=== PATIENT | female | born 1935 | race Caucasian/White ===

== ENCOUNTER 2016-12-31 12:05 | Emergency (ER) | payer OTHER, MEDICARE ==
[~2016-12-31 12:05] MED LIST: ACETAMINOPHEN-1 EAC3 PO; COLACE100 M1 PO
[2016-12-31 12:38] LABS: ABSOLUTE BASOPHIL COUNT 0 /CUMM (0.0-0.2); ABSOLUTE EOSINOPHIL COUNT 0.1 /CUMM (0.0-0.7); ABSOLUTE GRANULOCYTE CT 6.9 /CUMM (1.4-6.5); ABSOLUTE LYMPH COUNT 1.7 /CUMM (1.2-3.4); ABSOLUTE MONOCYTE COUNT 0.6 /CUMM (0.10-0.60); BASOPHIL % 0.4 % (0.0-2.0); EOSINOPHIL % 1.6 % (0-5); GRANULOCYTE % 73.4 % (42.2-75.2); HEMATOCRIT 37.7 % (37-47); MEAN CORPUSCULAR HGB 30.8 PG (27.0-31.0); MEAN CORPUSCULAR VOLUME 90.4 FL (81.0-99.0); MEAN PLATELET VOLUME 8.3 FL (7.4-10.4); PLATELET COUNT 308 /CUMM (130-400); RBC DISTRIBUTION WIDTH 14.3 % (11.5-14.5); RED BLOOD CELL CT 4.17 /CUMM (4.20-5.40); WHITE BLOOD CELL COUNT 9.4 /CUMM (4.8-10.8)
--- NOTE | 2016-12-31 14:00 | ED GI/GU/ABDOMINAL COMPLAINT ---
History of Present Illness General Chief Complaint: Abdominal Pain/Flank Pain Stated Complaint: RT SIDED ABD PAIN SENT BY DR SORIANO Source: patient, PCP Exam Limitations: no limitations Vital Signs & Intake/Output Vital Signs & Intake/Output Vital Signs Date Time Temp Pulse Resp B/P B/P Pulse O2 O2 Flow FiO2 Mean Ox Delivery Rate 12/31 1450 98.2 68 20 138/92 95 Room Air 12/31 1216 98.3 84 20 118/66 97 Room Air Allergies Coded Allergies: shrimp (UNKNOWN 12/31/16) strawberry (UNKNOWN 12/31/16) Reconcile Medications Amlodipine Besylate 5 MG TABLET 1 TAB PO DAILY HEART (Reported) Antiox#10/Om3/Dha/Epa/Lut/Zeax (I-Caps With Lutein-K[place] 3 Sfg) 280 MG (78 MG- 148 MG)-10 MG-2 MG CAPSULE 1 CAP PO DAILY EYE (Reported) Aspirin (Aspirin*) 81 MG TAB.CHEW 1 TAB PO DAILY HEART HEALTH (Reported) Escitalopram Oxalate (Lexapro) 5 MG TABLET 1 TAB PO DAILY MENTAL HEALTH ( Reported) Levothyroxine Sodium (Levoxyl) 50 MCG TABLET 1 TAB PO DAILY AC THYROID ( Reported) Multivitamin (Daily Multiple Vitamin) 1 EACH TABLET 1 TAB PO DAILY SUPPLEMENT (Reported) Olopatadine HCl (Patanol) 0.1 % DROPS 1 GTT OPH BID EYE (Reported) Quinapril HCl (Accupril) 40 MG TABLET 1 TAB PO DAILY HEART (Reported) Simvastatin (Zocor*) 20 MG TABLET 1 TAB PO QPM CHOLESTEROL (Reported) Triage Note: PER PT HAD RT SIDED ABD PAIN X [address] SORIANO FOR TESTS BECAUSE IT TAKES TOO LONG GOING OUT PT. Triage Nurses Notes Reviewed? yes ? n Is pt currently ? No HPI: Patient presents for evaluation of right-sided abdominal pain that began about 1 week ago. Patient is describing a mild to moderate intermittent dull aching right lower quadrant abdominal pain. She states she gets the pains every few hours and they last seconds at a time. She states it "feels like something is moving". She denies any associated fever, cold symptoms, chest pain, dyspnea, vomiting, diarrhea, dysuria or rashes. There is nothing that seems to make the pain feel better or worse. She was evaluated by her primary care physician and was asked to come to the emergency department for evaluation of a possible appendicitis versus ovarian cyst. Past History Travel History Traveled to [place] past 21 day No Medical History Any Pertinent Medical History? see below for history Neurological: NONE EENT: NONE Cardiovascular: HTN,CHOL Respiratory: NONE Gastrointestinal: GALLBLADDER REMOVED 2004 Hepatic: NONE Renal: NONE Musculoskeletal: NONE Psychiatric: NONE Endocrine: THYROID Surgical History Surgical History: PARATHYROIDECTOMY Psychosocial History What is your primary language Maldivian Tobacco Use: Quit <30 days ago Family History Hx Contributory? No Review of Systems Review of Systems Constitutional: Reports: no symptoms. EENTM: Reports: no symptoms. Respiratory: Reports: no symptoms. Cardiovascular: Reports: no symptoms. GI: Reports: see HPI. Genitourinary: Reports: no symptoms. Musculoskeletal: Reports: no symptoms. Skin: Reports: no symptoms. Neurological/Psychological: Reports: no symptoms. Hematologic/Endocrine: Reports: no symptoms. Immunologic/Allergic: Reports: no symptoms. All Other Systems: Reviewed and Negative Physical Exam Physical Exam Gastrointestinal: SEE BELOW Comments: Gen.: Well-nourished, well-developed, no acute respiratory distress. Head: Normocephalic, atraumatic. Eyes: Normal inspection bilaterally Ears: Normal inspection bilaterally Nose: Normal inspection Throat/mouth : Moist mucosa Neck: Supple, full range of motion, no goiter Heart: Regular rate and rhythm, no murmurs rubs or gallops Lungs: Clear to auscultation bilaterally with normal air entry Chest: Nontender Back: Normal range of motion Abdomen: Soft, nontender, nondistended, normal bowel sounds Extremities: Normal range of motion grossly, equal radial pulses, no cyanosis clubbing or edema Neurologic: Cranial nerves grossly intact, speech is clear Skin: warm and dry, no rashes Psychiatric: Calm, cooperative, no apparent delusions or hallucinations Core Measures ACS in differential dx? No Severe Sepsis Present: No Septic Shock Present: No Progress Differential Diagnosis: appendicitis, biliary colic, bowel obstruction, diverticulitis, hepatitis, ischemic bowel, ovarian cyst, pancreatitis, perforated viscous, SBO, UTI/pyelo Plan of Care: Orders Procedure Date/time Status URINALYSIS 12/31 1217 Complete LIPASE 12/31 1217 Complete COMPREHENSIVE METABOLIC PANEL 12/31 1217 Complete CBC WITHOUT DIFFERENTIAL 12/31 1216 Complete AMYLASE 12/31 1217 Complete Laboratory Tests 12/31/16 1317: Urinalysis LIGHT H, Urine Color YEL, Urine Clarity CLEAR, Urine pH 6.0, Ur Specific [place] 1.010, Urine Protein TRACE H, Urine Ketones NEG, Urine Nitrite NEG, Urine Bilirubin NEG, Urine Urobilinogen 0.2, Ur Leukocyte Esterase TRACE H , Ur Microscopic SEDIMENT EXAMINED, Urine RBC RARE, Urine WBC RARE, Ur Epithelial Cells MOD H, Urine Bacteria FEW H, Hyaline Casts 1-3 H, Urine Hemoglobin TRACE-INTACT, Urine Glucose NEG 12/31/16 1230: Anion Gap 12, Estimated GFR 43 L, BUN/Creatinine Ratio 19.2, Glucose 98, Calcium 9.2, Total Bilirubin 0.4, AST 20, ALT 27, Alkaline Phosphatase 80, Total Protein 6.9, Albumin 3.9, Globulin 3.0, Albumin/Globulin Ratio 1.3, Amylase 54, Lipase 139, CBC w Diff NO MAN DIFF REQ, RBC 4.17 L, MCV 90.4, MCH 30.8, RDW 14.3, MPV 8.3, Gran % 73.4, Lymphocytes % 18.1 L, Monocytes % 6.5, Eosinophils % 1.6, Basophils % 0.4, Absolute Granulocytes 6.9 H, Absolute Lymphocytes 1.7, Absolute Monocytes 0.6, Absolute Eosinophils 0.1, Absolute Basophils 0, PUBS MCHC 34.0 Diagnostic Imaging: Discussed w/RAD: CT Scan. Radiology Impression: PATIENT: LYNN COWAN PRESENT AGE: 81 PATIENT ACCOUNT NO: [id number] : 36 LOCATION: [facility] ORDERING PHYSICIAN: J CARLOS ROLAND MD SERVICE DATE: 12/31/16 EXAM TYPE: CAT - CT ABD & PELVIS W IV CONTRAST EXAMINATION: CT ABDOMEN AND PELVIS WITH CONTRAST CLINICAL INFORMATION: 81-year-old female with right lower quadrant abdominal pain. COMPARISON: None TECHNIQUE: Multidetector volumetric imaging was performed of the abdomen and pelvis before and after the IV administration of 95 mL of Optiray 320 intravenous contrast. Sagittal and coronal reformatted images were obtained on the technologist's workstation. DLP: 586 mGy-cm FINDINGS: LUNG BASES: There are a few scattered linear opacities of discoid atelectasis and/or scarring in the bases. No pericardial or pleural effusion. The mitral valve annulus is calcified. LIVER, GALLBLADDER, AND BILIARY TREE: The liver is diffusely hypodense relative to the spleen on these portal venous phase images: This suggests presence of steatosis. No focal hepatic lesion or intrahepatic bile duct dilatation. Gallbladder is surgically absent. PANCREAS: Unremarkable. SPLEEN: Unremarkable. ADRENAL GLANDS: Unremarkable. KIDNEYS AND URETERS: Kidneys are normal in size. There are bilateral peripelvic and cortical cysts. No solid renal masses are identified. No nephrolithiasis or hydroureteronephrosis. BLADDER: Unremarkable. GASTROINTESTINAL TRACT: Stomach is underdistended. The appendix is normal. There is diverticulosis of the descending and sigmoid colon without diverticulitis. No ascites or pneumoperitoneum. ABDOMINAL WALL: Small, fat-containing umbilical hernia measures 1.5 cm wide. LYMPH NODES: No pathologic sized lymph nodes within the abdomen or pelvis. VASCULAR: There is calcific atherosclerosis of the aorta and iliac arteries without aneurysm. The celiac trunk, SMA, EMILY and renal arteries appear to be widely patent. PELVIC VISCERA: The atrophied uterus is anteflexed. No evidence of uterine or adnexal mass. No evidence of free fluid or focal inflammatory process within the pelvis. OSSEOUS STRUCTURES: No acute findings within the degenerated thoracolumbar spine. At L3- L4, facet osteoarthritis is associated with minimal anterolisthesis of L3 on L4. 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 IMPRESSION: 1. No acute findings along the gastrointestinal tract. No evidence of appendicitis. There is colonic diverticulosis without diverticulitis. 2. Multiple bilateral renal cortical and peripelvic cysts without nephrolithiasis or hydronephrosis. 3. Diffuse hepatic steatosis. 4. No evidence of pelvic mass or abscess. 5. Small fat-containing umbilical hernia. DICTATED BY: OSCAR WREN MD DATE/TIME DICTATED:12/31/161445 DIRECTOR OF CREATIVE SERVICES:DRU DATE/TIME TRANSCRIBED:12/31/161445 CONFIDENTIAL, DO NOT COPY WITHOUT APPROPRIATE AUTHORIZATION. <Electronically signed in Other Vendor System> SIGNED BY: OSCAR WREN MD 12/31/16 1500 Initial ED EKG: none Comments: 12/31/2016 4:01:55 PM I have updated Lynn on her test results. Departure Departure Disposition: HOME OR SELF CARE Condition: Stable Clinical Impression Primary Impression: Nonspecific abdominal pain Referrals: KAYODE SORIANO MD (PCP/Family) Additional Instructions: [id number] pain medication as required. Follow-up with Dr. Soriano on Tuesday if not improving. Return if any concerns or sudden worsening. Please note that there might be incidental findings in your evaluation that are unrelated to the current emergency department visit. Please notify your primary care doctor about this emergency department visit in order to obtain and review all of the testing performed so that these incidental findings can be monitored as needed. If you had an x-ray performed, please understand that some fractures may not be seen on the initial set of x-rays. If your symptoms persist you might need a repeat set of x-rays to check for such a fracture. If you had a laceration evaluated, please understand that foreign bodies such as glass or wood may not be visible to the naked eye or on plain x-rays. If the wound becomes red, swollen, increasingly more painful or if there is any drainage from the wound, please have it reevaluated by a physician for the possibility of a retained foreign body. Thank you for choosing the [facility] Emergency Department for your care. It was a pleasure to serve you today. J Carlos Roland M.D. [facility] Departure Forms: Customer Survey General Discharge Information
[2016-12-31 14:50] VITALS: BP 138/92
--- NOTE | 2016-12-31 15:00 | CT SCAN REPORT ---
EXAMINATION: CT ABDOMEN AND PELVIS WITH CONTRAST CLINICAL INFORMATION: 81-year-old female with right lower quadrant abdominal pain. COMPARISON: None TECHNIQUE: Multidetector volumetric imaging was performed of the abdomen and pelvis before and after the IV administration of 95 mL of Optiray 320 intravenous contrast. Sagittal and coronal reformatted images were obtained on the technologist's workstation. DLP: 586 mGy-cm FINDINGS: LUNG BASES: There are a few scattered linear opacities of discoid atelectasis and/or scarring in the bases. No pericardial or pleural effusion. The mitral valve annulus is calcified. LIVER, GALLBLADDER, AND BILIARY TREE: The liver is diffusely hypodense relative to the spleen on these portal venous phase images: This suggests presence of steatosis. No focal hepatic lesion or intrahepatic bile duct dilatation. Gallbladder is surgically absent. PANCREAS: Unremarkable. SPLEEN: Unremarkable. ADRENAL GLANDS: Unremarkable. KIDNEYS AND URETERS: Kidneys are normal in size. There are bilateral peripelvic and cortical cysts. No solid renal masses are identified. No nephrolithiasis or hydroureteronephrosis. BLADDER: Unremarkable. GASTROINTESTINAL TRACT: Stomach is underdistended. The appendix is normal. There is diverticulosis of the descending and sigmoid colon without diverticulitis. No ascites or pneumoperitoneum. ABDOMINAL WALL: Small, fat-containing umbilical hernia measures 1.5 cm wide. LYMPH NODES: No pathologic sized lymph nodes within the abdomen or pelvis. VASCULAR: There is calcific atherosclerosis of the aorta and iliac arteries without aneurysm. The celiac trunk, SMA, EMILY and renal arteries appear to be widely patent. PELVIC VISCERA: The atrophied uterus is anteflexed. No evidence of uterine or adnexal mass. No evidence of free fluid or focal inflammatory process within the pelvis. OSSEOUS STRUCTURES: No acute findings within the degenerated thoracolumbar spine. At L3-L4, facet osteoarthritis is associated with minimal anterolisthesis of L3 on L4. 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 IMPRESSION: 1. No acute findings along the gastrointestinal tract. No evidence of appendicitis. There is colonic diverticulosis without diverticulitis. 2. Multiple bilateral renal cortical and peripelvic cysts without nephrolithiasis or hydronephrosis. 3. Diffuse hepatic steatosis. 4. No evidence of pelvic mass or abscess. 5. Small fat-containing umbilical hernia.
[2016-12-31] MEDS ORDERED: AMLODIPINE BESYL5 M1 PO (15:12)
[2016-12-31] MEDS ORDERED: LEVOXYL50 MCG PO (15:12)
[2016-12-31] MEDS ORDERED: ACCUPRIL40 M1 PO (15:12)
[2016-12-31] MEDS ORDERED: DAILY MULTIPLE1 EACH PO (15:13)
[2016-12-31] MEDS ORDERED: I-CAPS WITH LU1 EACH PO (15:13)
[2016-12-31] MEDS ORDERED: ZOCOR20 M1 PO (15:13)
[2016-12-31] MEDS ORDERED: LEXAPRO5 M1 PO (15:14)
[2016-12-31] MEDS ORDERED: ASPIRIN81 M4 PO (15:14)
[2016-12-31] MEDS ORDERED: PATANOL5 ML OPH (15:14)
== END 2016-12-31 16:10 ==
LOC: ERH 12:05
PROVIDERS: Emergency Medicine
DX: R10.31 Right lower quadrant pain (principal)
CPT/HCPCS: 74177; 81001

== ENCOUNTER 2018-05-04 10:47 | Inpatient (IN) | payer OTHER, MEDICARE ==
[~2018-05-04] VITALS: Ht 157.5 cm; Wt 84.5 kg
[~2018-05-04 10:47] MED LIST changes: +ACCUPRIL40 M1 PO; +AMLODIPINE BESYL5 M1 PO; +ASPIRIN81 M4 PO; +DAILY MULTIPLE1 EACH PO; +I-CAPS WITH LU1 EACH PO; +LEVOXYL50 MCG PO; +LEXAPRO5 M1 PO; +PATANOL5 ML OPH; +ZOCOR20 M1 PO
--- NOTE | 2018-05-04 11:17 | ED NEURO DEFICIT/STROKE ---
History of Present Illness General Chief Complaint: Neuro Symptoms/ Deficit Stated Complaint: BIBA STROKE ALERT Source: patient Exam Limitations: no limitations Vital Signs & Intake/Output Vital Signs & Intake/Output Vital Signs Date Time Temp Pulse Resp B/P B/P Pulse O2 O2 Flow FiO2 Mean Ox Delivery Rate 05/04 1356 62 20 180/80 99 Room Air 05/04 1052 98.6 61 18 183/85 98 Room Air Allergies Coded Allergies: shrimp (UNKNOWN 12/31/16) strawberry (UNKNOWN 12/31/16) Reconcile Medications Amlodipine Besylate 5 MG TABLET 1 TAB PO DAILY HEART (Reported) Antiox#10/Om3/Dha/Epa/Lut/Zeax (I-Caps With Lutein-[place] 3 Sfg) 280 MG (78 MG- 148 MG)-10 MG-2 MG CAPSULE 1 CAP PO DAILY EYE (Reported) Aspirin (Aspirin*) 81 MG TAB.CHEW 1 TAB PO DAILY HEART HEALTH (Reported) Cholecalciferol (Vitamin D3) (Vitamin D3) 2,000 UNIT TABLET 1 TAB PO DAILY VITAMIN SUPPORT (Reported) Escitalopram Oxalate (Lexapro) 5 MG TABLET 1 TAB PO DAILY MENTAL HEALTH ( Reported) Levothyroxine Sodium (Levoxyl) 50 MCG TABLET 1 TAB PO DAILY AC THYROID ( Reported) Multivitamin (Daily Multiple Vitamin) 1 EACH TABLET 1 TAB PO DAILY SUPPLEMENT (Reported) Nebivolol HCl (Bystolic) 5 MG TABLET 1 TAB PO DAILY HEART (Reported) Olopatadine HCl (Patanol) 0.1 % DROPS 1 GTT OPH BID EYE (Reported) Quinapril HCl (Accupril) 40 MG TABLET 1 TAB PO DAILY HEART (Reported) Simvastatin (Zocor*) 20 MG TABLET 1 TAB PO QPM CHOLESTEROL (Reported) Sodium Chloride (Rhinaris) 0.2 % SPRAY 1 SPRAY PHILIPPE DAILY ALLERGIES (Reported) Triage Note: PT BIBA FROM HOME AFTER EPISODE OF SLURRED SPEECH, FACIAL DROOP, DIFFICUTLY FORMULATING SENTENCES, AND DIFFICULTY KEEPING EYES OPEN. PT'S FAMILY NOTICED ONSET OF SYMPTOMS ON 05/03/18 AT APPROX 1705 HOURS. FAMILY REMAINED WITH PT UNTIL SYMPTOMS RESOLVED ON 05/03/18 AT APPROX 2200 HOURS. PT CONTINUES TO HAD LEFT SIDED FACIAL DROOP. SPEECH CLEAR AND APPROPRIATE. BILAT LOWER AND UPPER EXTREMITIES STRONG AND EQUAL. PT LAST SEEN NORMAL ON 05/03/18 AT APPROX 0900 HOURS. Triage Nurses Notes Reviewed? yes HPI: Patient presents for evaluation of a left facial droop and slurred speech that began at about 5:00 last night. Patient lives at home with no sudden onset of symptoms. In addition to the slurred speech and left facial droop the patient has been feeling tired but denies any focal motor weakness or expressive aphasia. The patient felt nauseous over the past week prompting her to see her primary care doctor. She saw her doctor on Tuesday and blood work was obtained. The slurred speech seems to have resolved with the patient has a persistent left facial droop prompting her to be evaluated in the emergency department. Past History Travel History Traveled to [facility] past 21 day No Medical History Any Pertinent Medical History? see below for history Neurological: NONE EENT: NONE Cardiovascular: HTN,CHOL Respiratory: NONE Gastrointestinal: GALLBLADDER REMOVED 2004 Hepatic: NONE Renal: NONE Musculoskeletal: NONE Psychiatric: NONE Endocrine: THYROID Surgical History Surgical History: PARATHYROIDECTOMY Psychosocial History What is your primary language Martiniquais Tobacco Use: Never used Family History Hx Contributory? No Review of Systems Review of Systems Constitutional: Reports: no symptoms. EENTM: Reports: no symptoms. Respiratory: Reports: no symptoms. Cardiovascular: Reports: no symptoms. GI: Reports: no symptoms. Genitourinary: Reports: no symptoms. Musculoskeletal: Reports: no symptoms. Skin: Reports: no symptoms. Neurological/Psychological: Reports: see HPI. Hematologic/Endocrine: Reports: no symptoms. Immunologic/Allergic: Reports: no symptoms. All Other Systems: Reviewed and Negative Physical Exam Physical Exam General Appearance: SEE BELOW Cranial Nerves: SEE BELOW Comments: Gen.: Well-nourished, well-developed, no acute respiratory distress. Head: Normocephalic, atraumatic. Eyes: Normal inspection bilaterally Ears: Normal inspection bilaterally Face: Left facial droop that spares the left forehead Nose: Normal inspection Throat/mouth : Moist mucosa Neck: Supple, full range of motion, no goiter Heart: Regular rate and rhythm, no murmurs rubs or gallops Lungs: Clear to auscultation bilaterally with normal air entry Chest: Nontender Back: Normal range of motion Abdomen: Soft, nontender, nondistended, normal bowel sounds Extremities: Normal range of motion grossly, equal radial pulses, no cyanosis clubbing or edema Neurologic: Aside from left facial droop, cranial nerves are intact, speech is mildly slurred with no apparent expressive aphasia Skin: warm and dry Psychiatric: Calm, cooperative, no apparent delusions or hallucinations Core Measures CVA/TIA Diagnosis: Yes NIH Stroke Scale NIH Stroke Scale Response Value Level of Consciousness alert 0 LOC Questions answers both correctly 0 LOC Commands obeys both correctly 0 Best Gaze normal 0 Visual Redman no visual loss 0 Facial Paresis minor 1 Motor Arm - Left no drift 0 Motor Arm - Right no drift 0 Motor Leg - Left no drift 0 Motor Leg - Right no drift 0 Limb Ataxia no ataxia 0 Sensory normal 0 Best Language no aphasia 0 Dysarthria mild/mod slurring words 1 Total 2 Swallow Evaluation Pass Swallow eval date 05/04/18 Sepsis Present: No Sepsis Focused Exam Completed? No Progress Differential Diagnosis: Roland's Palsy, hypoglycemia, seizure disorder, stroke Plan of Care: Orders Procedure Date/time Status Telemetry/Assistant Press Operator 05/04 111 Active PARTIAL THROMBOPLASTIN TIME 05/04 111 Complete PROTHROMBIN TIME 05/04 111 Complete COMPREHENSIVE METABOLIC PANEL 05/04 111 Complete CBC WITHOUT DIFFERENTIAL 05/04 111 Complete EKG 05/04 111 Active Laboratory Tests 05/04/18 1130: Anion Gap 6, Estimated GFR 53 L, BUN/Creatinine Ratio 23.0, Glucose 98, Calcium 9.2, Total Bilirubin 0.4, AST 37 H, ALT 23, Alkaline Phosphatase 87, Total Protein 6.8, Albumin 3.7, Globulin 3.1, Albumin/Globulin Ratio 1.2, PT 12.5, INR 1.15, APTT 35, CBC w Diff NO MAN DIFF REQ, RBC 4.48, MCV 90.9, MCH 30.3, MCHC 33.3, RDW 14.7 H, MPV 8.7, Gran % 81.1 H, Lymphocytes % 11.2 L, Monocytes % 6.5, Eosinophils % 1.0, Basophils % 0.2, Absolute Granulocytes 10.6 H, Absolute Lymphocytes 1.5, Absolute Monocytes 0.9 H, Absolute Eosinophils 0.1, Absolute Basophils 0, Lyme Disease Antibody Cancelled 05/04/18 1117: Lyme Disease Screen Pending Diagnostic Imaging: Discussed w/RAD: CT Scan. Radiology Impression: PATIENT: ALEX COWAN PRESENT AGE: 82 PATIENT ACCOUNT NO: [id number] : 36 LOCATION: [facility] ORDERING PHYSICIAN: J Carlos Roland MD SERVICE DATE: 05/04/18 EXAM TYPE : CAT - CT HEAD WO IV CONTRAST CT HEAD WITHOUT CONTRAST CLINICAL INFORMATION: Left facial droop since yesterday. COMPARISON: None TECHNIQUE: Contiguous axial imaging was performed from the skull base to vertex without intravenous administration of contrast. FINDINGS: There is global cerebral volume loss and there is confluent hypoattenuation throughout the supratentorial white matter, most likely chronic microangiopathy. There is no intracranial hemorrhage, hydrocephalus, extra-axial surface collection, midline shift, or other herniation pattern. [place]itt to white matter differentiation is diffusely maintained without evidence of an evolved acute territorial infarct. The basilar cisterns are preserved. No significant soft tissue abnormality. No acute osseous abnormality. The paranasal sinuses and the mastoid air cells are well-aerated. IMPRESSION: No definite acute intracranial findings. 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 If focal neurologic deficit persists, MRI would be more sensitive in evaluation. DICTATED BY: J Carlos Bear MD DATE/TIME DICTATED:05/04/181247 SHREDDER PICKER:DRU DATE/TIME TRANSCRIBED:1247 CONFIDENTIAL, DO NOT COPY WITHOUT APPROPRIATE AUTHORIZATION. < Electronically signed in Other Vendor System> SIGNED BY: J Carlos Bear MD 05/04/18 1256 Initial ED EKG: NSR, rate (56), RBBB Comments: Patient's case discussed with Dr. Acosta. Departure Departure Disposition: STILL A PATIENT Condition: Stable Clinical Impression Primary Impression: CVA (cerebral vascular accident) Qualifiers: CVA mechanism: unspecified Qualified Code: I63.9 - Cerebral infarction, unspecified Referrals: Ifeanyi Poe MD (PCP/Family) Departure Forms: Customer Survey General Discharge Information Admission Note Spoke With: Joselyn Berrios MD Documentation of Exam: Documentation of any treatments & extenuating circumstances including Concerns Regarding Discharge (functional status, medication knowledge or non-compliance, living conditions, etc.) that warrant an admission rather than observation: Patient suffered a stroke yesterday with a resulting persistent left facial droop. Feel this patient requires hospitalization for investigation of treatable causes of her stroke including cardioembolic phenomenon and carotid artery disease. Neurology consultation should also be considered in patient's medical management optimized. Regarding Discharge (functional status, medication knowledge or non-compliance, living conditions, etc.) that warrant an admission rather than observation: Patient suffered a stroke yesterday with a resulting persistent left facial droop. Feel this patient requires hospitalization for investigation of treatable causes of her stroke including cardioembolic phenomenon and carotid artery disease. Neurology consultation should also be considered in patient's medical management optimized.
[2018-05-04] MEDS ORDERED: BYSTOLIC5 M1 PO (11:36)
[2018-05-04 11:37] LABS: ABSOLUTE BASOPHIL COUNT 0 /CUMM (0.0-0.2); ABSOLUTE EOSINOPHIL COUNT 0.1 /CUMM (0.0-0.7); ABSOLUTE GRANULOCYTE CT 10.6 /CUMM (1.4-6.5); ABSOLUTE LYMPH COUNT 1.5 /CUMM (1.2-3.4); ABSOLUTE MONOCYTE COUNT 0.9 /CUMM (0.10-0.60); BASOPHIL % 0.2 % (0.0-2.0); GRANULOCYTE % 81.1 % (42.2-75.2); HEMATOCRIT 40.7 % (37-47); MEAN CORPUSCULAR HGB 30.3 PG (27.0-31.0); MEAN CORPUSCULAR HGB CONC 33.3 G/DL (33.0-37.0); MEAN CORPUSCULAR VOLUME 90.9 FL (81.0-99.0); MEAN PLATELET VOLUME 8.7 FL (7.4-10.4); PLATELET COUNT 302 /CUMM (130-400); RBC DISTRIBUTION WIDTH 14.7 % (11.5-14.5); RED BLOOD CELL CT 4.48 /CUMM (4.20-5.40)
[2018-05-04] MEDS ORDERED: [UNRECOGNIZED DRUG - OTHER] NAS (11:37)
[2018-05-04] MEDS ORDERED: VITAMIN D32000 UNI1 PO (11:37)
[2018-05-04 12:04] LABS: PT 12.5 SEC (9.4-12.5); PTT 35 SEC (25-37)
--- NOTE | 2018-05-04 12:56 | CT SCAN REPORT ---
CT HEAD WITHOUT CONTRAST CLINICAL INFORMATION: Left facial droop since yesterday. COMPARISON: None TECHNIQUE: Contiguous axial imaging was performed from the skull base to vertex without intravenous administration of contrast. FINDINGS: There is global cerebral volume loss and there is confluent hypoattenuation throughout the supratentorial white matter, most likely chronic microangiopathy. There is no intracranial hemorrhage, hydrocephalus, extra-axial surface collection, midline shift, or other herniation pattern. [place]itt to white matter differentiation is diffusely maintained without evidence of an evolved acute territorial infarct. The basilar cisterns are preserved. No significant soft tissue abnormality. No acute osseous abnormality. The paranasal sinuses and the mastoid air cells are well-aerated. IMPRESSION: No definite acute intracranial findings. 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 If focal neurologic deficit persists, MRI would be more sensitive in evaluation.
--- NOTE | 2018-05-04 15:43 | Admission Certification ---
Admission Certification Certification Statement - As attending physician, I certify that at the time of - admission, based on clinical presentation, severity of - symptoms, need for further diagnostic testing and - therapeutic interventions, and risk of adverse outcomes - without in-hospital treatment, in my clinical assessment, - this patient requires an acute hospital stay for a minimum - of two nights or longer. I have also considered psychsocial - factors such as support system, advanced age, financial - issues, cognitive issues, and failed out-patient treatments, - past re-admission history, safety of patient, and lack of - compliance as applicable. Specific rationale supporting this admission is: Clinical CVA with facial droop
--- NOTE | 2018-05-04 15:45 | PN- Att Addend ---
Attending Addendum Attending Brief Note 82-year-old female past medical history of hypertension, hyperlipidemia, hypothyroidism who is here with with what appears to be an acute clinical CVA. The family noticed a facial droop yesterday and some weakness. They did not bring her in yesterday and the weakness resolved. When they went to visit her today the facial droop was still present and that is what prompted her to them to bring her in. On my exam she does have a facial droop and some mild slurring of speech but no other focal weakness. She takes aspirin inconsistently at home so she is not really an aspirin failure. She passed a bedside swallow in the ED but will get a formal swallow eval in a.m. Get a PT eval. Get an echocardiogram to look at LV thrombus, bring her into telemetry to make sure there is no atrial fibrillation and get a carotid ultrasound to make sure there is no significant stenosis. Dvt prophylaxis and f/u
--- NOTE | 2018-05-04 16:06 | History & Physical ---
See Addendum Lewis Owusu 05/04/18 1604: General Information and HPI MD Statement: I have seen and personally examined ALEX COWAN and documented this H&P. The patient is a 82 year old F who presented with a patient stated chief complaint of BIBA STROKE ALERT. Source of Information: patient, family, EMS Exam Limitations: no limitations History of Present Illness: 82 year old female past medical history of hypertension, hypercholesterolemia, hypothyroidism, status post parathyroidectomy who presents for evaluation of left facial droop and slurred speech that began yesterday at approximately 1700. Yesterday before that, patient went to see analyst microbiology lab for her sciatica, and was given to dietary supplements. After taking dietary supplements, patient states that she was feeling tired and had difficulty keeping her eyes open. Her son-in-law and daughter noticed the slurred speech and facial droop a little before 1700, but the patient had no difficulty eating dinner went to bed early. The patient did get up at night to use the restroom, at which point she fell backwards while using her walker, causing pain in her left shoulder. Patient also endorses nausea. Denies headache, vision changes, fever, cough, chills, weight loss, any focal motor deficits. This morning when the symptoms were still present, she was brought by ambulance to the ED. In the ED she was found to be afebrile, respiratory 18, BP 183/85, 98% on room air. Labs notable for leukocytosis of 13 and a BUN of 23. Otherwise unremarkable. She continues to have left sided facial droop. 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 EKG showed NSR w/ RBBB. Patient is being admitted to telemetry for monitoring of heart rhythm to rule out malignant arrythmia. Allergies/Medications Allergies: Coded Allergies: shrimp (UNKNOWN 12/31/16) strawberry (UNKNOWN 12/31/16) Home Med list Amlodipine Besylate 5 MG TABLET 1 TAB PO DAILY HEART (Reported) Antiox#10/Om3/Dha/Epa/Lut/Zeax (I-Caps With Lutein-[place] 3 Sfg) 280 MG (78 MG- 148 MG)-10 MG-2 MG CAPSULE 1 CAP PO DAILY EYE (Reported) Aspirin (Aspirin*) 81 MG TAB.CHEW 1 TAB PO DAILY HEART HEALTH (Reported) Cholecalciferol (Vitamin D3) (Vitamin D3) 2,000 UNIT TABLET 1 TAB PO DAILY VITAMIN SUPPORT (Reported) Escitalopram Oxalate (Lexapro) 5 MG TABLET 1 TAB PO DAILY MENTAL HEALTH ( Reported) Levothyroxine Sodium (Levoxyl) 50 MCG TABLET 1 TAB PO DAILY AC THYROID ( Reported) Multivitamin (Daily Multiple Vitamin) 1 EACH TABLET 1 TAB PO DAILY SUPPLEMENT (Reported) Nebivolol HCl (Bystolic) 5 MG TABLET 1 TAB PO DAILY HEART (Reported) Olopatadine HCl (Patanol) 0.1 % DROPS 1 GTT OPH BID EYE (Reported) Quinapril HCl (Accupril) 40 MG TABLET 1 TAB PO DAILY HEART (Reported) Simvastatin (Zocor*) 20 MG TABLET 1 TAB PO QPM CHOLESTEROL (Reported) Sodium Chloride (Rhinaris) 0.2 % SPRAY 1 SPRAY PHILIPPE DAILY ALLERGIES (Reported) Compliance With Home Meds: FAIR Past History Travel History Traveled to [place] past 21 day No Medical History Neurological: NONE EENT: NONE Cardiovascular: HTN,CHOL Respiratory: NONE Gastrointestinal: GALLBLADDER REMOVED 2004 Hepatic: NONE Renal: NONE Musculoskeletal: NONE Psychiatric: NONE Endocrine: THYROID Surgical History Surgical History: PARATHYROIDECTOMY Past Family/Social History Psychosocial History Smoking Status: Never Smoked Functional Ability ADLs Independent: dressing, eating, toileting, bathing. Ambulation: walker IADLs Independent: shopping, housework, finances, food prep, telephone, transportation , medication admin. Review of Systems Review of Systems Constitutional: Reports: no symptoms. EENTM: Denies: blurred vision, double vision, visual changes. Cardiovascular: Denies: chest pain, palpitations, syncope. Respiratory: Denies: cough, short of breath. GI: Reports: nausea. Denies: abdominal pain, constipation, diarrhea, bowel incontinence, vomiting. Genitourinary: Reports: no symptoms. Musculoskeletal: Reports: back pain, muscle pain. Skin: Reports: no symptoms. Neurological/Psychological: Reports: other (left facial droop, dysarthria). Denies: confusion, depressed, dementia, numbness, paresthesia, tingling, tremors. Exam & Diagnostic Data Last 24 Hrs of Vital Signs/I&O Vital Signs Date Time Temp Pulse Resp B/P B/P Pulse O2 O2 Flow FiO2 Mean Ox Delivery Rate 05/04 1645 99.0 56 18 148/63 94 Room Air 05/04 1356 62 20 180/80 99 Room Air 05/04 1052 98.6 61 18 183/85 98 Room Air Intake & Output 05/04 1600 05/04 0800 05/04 0000 Intake Total Output Total Balance Patient 191 lb Weight Weight Reported by Patient Measurement Method Physical Exam General Appearance Alert, Oriented X3, Cooperative, No Acute Distress Skin No Rashes, No Breakdown, No Significant Lesion Skin Temp/Moisture Exam: Warm/Dry HEENT Atraumatic, PERRLA, EOMI, Mucous Membr. moist/pink Neck Supple, No JVD, No thryomegaly Cardiovascular Regular Rate, Normal S1, Normal S2, No Murmurs, Gallops, Rubs Lungs Clear to Auscultation, Normal Air Movement Abdomen Soft, No Tenderness, No Hepatospenomegaly Neurological Normal Speech, Strength at 5/5 X4 Ext, Normal Tone, Sensation Intact, facial droop, left Extremities No Clubbing, No Cyanosis, No Edema Last 24 Hrs of Labs/Jae: Laboratory Tests 05/04/18 1130: Anion Gap 6, Estimated GFR 53 L, BUN/Creatinine Ratio 23.0, Glucose 98, Calcium 9.2, Total Bilirubin 0.4, AST 37 H, ALT 23, Alkaline Phosphatase 87, Total Protein 6.8, Albumin 3.7, Globulin 3.1, Albumin/Globulin Ratio 1.2, PT 12.5, INR 1.15, APTT 35, CBC w Diff NO MAN DIFF REQ, RBC 4.48, MCV 90.9, MCH 30.3, MCHC 33.3, RDW 14.7 H, MPV 8.7, Gran % 81.1 H, Lymphocytes % 11.2 L, Monocytes % 6.5, Eosinophils % 1.0, Basophils % 0.2, Absolute Granulocytes 10.6 H, Absolute Lymphocytes 1.5, Absolute Monocytes 0.9 H, Absolute Eosinophils 0.1, Absolute Basophils 0, Lyme Disease Antibody Cancelled 05/04/18 1117: Lyme Disease Screen Pending Diagnostic Data EKG Results NSR, RBBB Other Results Head CT: IMPRESSION: No definite acute intracranial findings. 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 If focal neurologic deficit persists, MRI would be more sensitive in evaluation. Assessment/Plan Assessment: 82 year old female past medical history of hypertension, hypercholesterolemia, hypothyroidism, status post parathyroidectomy who presents for evaluation of left facial droop and slurred speech that began yesterday at approximately 1700. Problem list/plan: CVA/TIA -Admit to telemetry floor to rule out malignant arrhythmia as cause -I's & O's q shift, vitals per protocol -Head CT showed no acute hemorrhage -MRI brain will have higher sensitivity for ischemic stroke -neuro consult -Carotid doppler to look for atherosclerotic lesions -Patient started on aspirin 325 daily (patient is not aspirin compliant at home) -Passed bedside swallow eval. Formal consult in the am Hypertension -hold home amlodipine 5mg/d, Bystolic 5mg/d, quinapril 40mg/d, Hyperlipidemia -convert home simvastatin to high dose 80 mg atorvastatin given concern for stroke Hypothyroid -continue home levothyroxine 50mcg/d DVT prophylaxis: ALPS Patient bedside swallow eval - Heart healthy diet Patient is DNR/DNI As Ranked By This Provider Problem List: 1. CVA (cerebral vascular accident) Qualifiers CVA mechanism: unspecified Qualified Code: I63.9 - Cerebral infarction, unspecified 2. Hypothyroidism 3. Hypertension 4. Hyperlipidemia Core Measures/Misc (05/01) Acute Coronary Syndrome ACS Diagnosis: No Congestive Heart Failure Congestive Heart Failure Diagnosis No Cerebrovascular Accident CVA/TIA Diagnosis: Yes NIH Stroke Scale: Total 3 Date Last Known Well: 05/03/18 Time Last Known Well: 0600 Symptom Start Date: 05/03/18 Symptom Start Time: 1700 tPA Risk/Benefit discussion Patient is not a candidate for tPA tPA given? No Reason tPA not ordered Medical Contraindication Swallow Evaluation Pass Current/Past Hx AFib/AFlutter No VTE (View Protocol) VTE Risk Factors Age>40 No Mechanical VTE Prophylaxis d/t N/A MechProphylax Ordered No VTE Pharm Prophylaxis d/t NA PharmProphylax ordered Sepsis (View protocol) Sepsis Present: No If YES complete Sepsis Event Note If YES complete Sepsis Event Note Marquez GARNER,Kang 05/04/181926: Core Measures/Misc (05/01) Sepsis (View protocol) If YES complete Sepsis Event Note If YES complete Sepsis Event Note Resident Review Statement Resident Statement: examined this patient, discussed with internal medicine doctor, agreed with internal medicine doctor Other Findings: 82-year-old very pleasant lady with a past medical history of hypertension, hyperlipidemia on low-dose statin therapy, hypothyroidism, takes aspirin but not on a regular basis, is brought in by family for evaluation of a 16 hour history of left-sided facial droop with some dysarthria and weakness. The dysarthria and weakness resolved however left facial droop was still persistent. When seen by the medical team other than the left facial droop, her entire neurological exam was benign. Patient reports the previous day she was seen by analyst microbiology lab who gave her some homeopathic medications which includes bovine adrenal and liver extract, porcine stomach extra as some of the ingredients. Impression * Left-sided lower facial droop with resolved dysarthria and weakness. Differentials include cva/TIA vs [place] palsy. However, the intact upper facial motor function on exam (normal symetrical wrinkling of forehad area and symetrical closure and tightening of eyelids) makes [place] less likely. Her presentation is more likely suggestive of central facial weakness from CVA versus TIA. Preliminary CT is unremarkable for any hemorrhagic CVA, or ischemic findings (not ideal to modality to rule out ischemic stroke). CVA versus TIA is a tissue diagnosis rather than time, therefore will need an MRI to completely rule out CVA. * History of chronic diseases; hyperlipidemia hypothyroidism hypertension. Plan Admit to telemetry for close cardiac monitoring Continue aspirin 325mg daily (given that the patient does not take aspirin and a regular basis this cannot be considered as aspirin failure), Atorvastatin 80 mg daily MRI of the head to assess for stroke Carotid Doppler to assess for stenosis Echocardiogram to assess for LV thrombus Hold off blood pressure medicine to allow for permissive hypertension in case patient has an ischemic stroke Neuro consult Formal swallow eval tomorrow morning (patient passed bedside swallow eval) DVT prophylaxis; alps for now, will hold off on anticoagulation to tomorrow and reassess after MRI CODE STATUS; DNR/DNI Agustina GARNER,Joselyn 05/05/18 0748: Past Family/Social History Psychosocial History Other Social History: FAMILY HISTORY IS NON CONTRIBUTORY Core Measures/Misc (05/01) Sepsis (View protocol) If YES complete Sepsis Event Note If YES complete Sepsis Event Note Attending MD Review Statement Attending Statement Attending MD Statement: examined this patient, discuss w/resident/PA/SHOE SHINER, agreed w/resident/PA/SHOE SHINER, reviewed EMR data (avail), discussed with nursing, discussed with case mgmt, reviewed images Attending Assessment/Plan: See medical brief addendum note dated 05/04/18
--- NOTE | 2018-05-04 19:08 | ULTRASOUND REPORT ---
EXAMINATION: US DUPLEX CAROTID AND VERTEBRAL CLINICAL INFORMATION: Facial droop greater than 20 hours. COMPARISON: None TECHNIQUE: Real-time ultrasound and Doppler techniques (integrating B-mode 2D vascular images, Doppler spectral analysis and color flow Doppler imaging) were utilized to interrogate the extracranial carotid and vertebral arteries bilaterally. The degree of stenosis determined by criteria similar to NASCET. FINDINGS: There is normal antegrade flow seen in both carotid arteries without any plaque. On the right peak systolic/end diastolic velocity distal CCA measures 62/10 cm/second. Peak systolic/end diastolic velocity right proximal ICA measures 56/11 cm/second. There is no significant stenosis. On the left peak systolic/end diastolic velocity left CCA measures 86/16 cm/second. Peak systolic/end diastolic velocity left proximal ICA measures 63/13 cm/second. There is no significant stenosis. There is normal antegrade flow seen in both vertebral arteries. IMPRESSION: No hemodynamically significant stenosis in either carotid artery. Normal antegrade flow seen in both vertebral arteries.
--- NOTE | 2018-05-04 21:09 | Event Note ---
Event Note Event Note: Situation: I was notified by the previous on-call team during the sign out that the patient was found to have a troponin of 2.87. Background: The patient is an 82-year-old female with past medical history significant for hypertension, hyperlipidemia, hypothyroidism, who presented to ED with chief complaint of left facial droop and slurred speech Assessment: I was notified during the sign out that the patient does not have any symptoms of cardiac disease and ACS-like chest pain, chest tightness, pressure, palpitation. I talked to the patient in person, she does not have any complaints of chest tightness, pressure, chest pain, palpitation, shortness of breath, abdominal pain, or epigastric pain. She mentions that she has been feeling nauseous for the past 5 days and she feels occasional pain in her right side of her jaw, for the past 3 days, which goes away with baby aspirin that she takes only at the time of this pain. She does not take baby aspirin regularly. The patient has a family history for [place] and stent placement in her sister at the age of 7979 years old. The patient does not have any renal function impairment and the creatinine is 1.0, did not have any signs or symptoms of ACS. First troponin was 2.87 which went down to 2.24. We do not have any old EKGs, but the patient mentions that her hides and skins colorer is Dr. Chad Villasenor and she had a stress test 3 years ago, and is following with Dr. Villasenor annually, and Dr. Solano does biannual EKGs and she has been told that all cardiac workups has been normal. Current EKG in ED was the only EKG that we have which showed right bundle branch block with T inversion in V1 to V3, and minimal ST depression less than 1 mm in V1 to V4. T-wave inversions could be due to right bundle branch block. It also shows T inversion in lead III and flattening of T waves in aVF. There is no old EKG to compare this changes. Recommendations: I will recheck EKG and troponin at midnight, to look for active changes in EKG and trend troponin, and at 6 AM, based on recommendations by Dr. Connolly (I talked to him in person in ICU at 21: 30) I will order echocardiogram for this patient. Please try to obtain old EKGs from patient's records from Dr. Solano who is her PCP. Dr. Connolly mentioned that he will notify Dr. Martinez about this patient. ECGs were compared, no acute changes seen. Troponin I: 2.87 ---> 2.24 ---> 1.80
[2018-05-04 22:33] VITALS: BP 160/98
[2018-05-05 06:55] VITALS: BP 150/84
--- NOTE | 2018-05-05 07:53 | ECHOCARDIOGRAM REPORT ---
ALEX COWAN Age: 82 : 1935 Gender: F Exam Date: 05/04/2018 18:32 Exam Location: ER Ht (in): 62 Wt (lb): 191 BSA: 1.99 BP: 148 / 63 Ordering Physician: Kang Zayas MD Referring Physician: Oleg Berrios MD Technologist: Dustin De Los Santos [facility] Room Number: 07 Indications: Cerebrovascular disease, unspecified Rhythm: Sinus Technical Quality: fair FINDINGS Left Ventricle Normal size left ventricle. Left ventricular wall thickness mildly increased. Normal left ventricular ejection fraction estimated at 60-65%. Right Ventricle Normal right ventricular size and function. Right Atrium Normal right atrial size. Left Atrium Mild left atrial dilatation. Mitral Valve Moderate mitral annular calcification. Mild mitral regurgitation. Aortic Valve Thickened aortic valve without stenosis. Tricuspid Valve Tricuspid valve is normal in structure and function. Mild tricuspid regurgitation. Pulmonic Valve Pulmonic valve not well visualized, grossly normal. Pericardium No pericardial effusion. Great Vessels Normal size aortic root. CONCLUSIONS Normal left ventricular systolic function with mild LVH. Dilated left atrium. No significant valvular abnormalities noted. Oleg Berrios M.D. (Electronically Signed) Final Date: 05 May 2018 07:50 MEASUREMENTS (Male / Female) Normal Values 2D ECHO LV Diastolic Diameter PLAX 4.2 cm 4.2 - 5.9 / 3.9 - 5.3 cm LV Systolic Diameter PLAX 2.7 cm 2.1 - 4.0 cm LV Fractional Shortening PLAX 35.7 % 25 - 46 % LV Ejection Fraction 2D Teich 65.6 % IVS Diastolic Thickness 1.3 cm LVPW Diastolic Thickness 1.3 cm LV Relative Wall Thickness 0.6 RV Internal Dim ED PLAX 3.1 cm 1.9 - 3.8 cm LVOT Diameter 2.2 cm Aortic Root Diameter 3.0 cm LA Systolic Diameter LX 4.0 cm 3.0 - 4.0 / 2.7 - 3.8 cm LA Volume 97.0 cm 18 - 58 / 22 - 52 cm Ascending Aorta Diameter 3.3 cm DOPPLER AV Peak Velocity 132.0 cm/s AV Peak Gradient 7.0 mmHg AV Mean Velocity 92.8 cm/s AV Mean Gradient 4.0 mmHg AV Velocity Time Integral 30.0 cm LVOT Peak Velocity 106.0 cm/s LVOT Peak Gradient 4.5 mmHg LVOT Mean Velocity 69.8 cm/s LVOT Mean Gradient 2.0 mmHg LVOT Velocity Time Integral 26.7 cm LVOT Stroke Volume 101.5 cm AV Area Cont Eq vti 3.4 cm AV Area Cont Eq pk 3.1 cm MV Peak Velocity 119.0 cm/s MV Peak Gradient 5.7 mmHg MV Mean Velocity 73.1 cm/s MV Mean Gradient 2.0 mmHg Mitral E Point Velocity 98.7 cm/s Mitral A Point Velocity 93.3 cm/s Mitral E to A Ratio 1.1 MV PHT Velocity 97.2 cm/s MV Deceleration Irwin 450.0 cm/s MV Pressure Half Time 64.8 ms MV Area PHT 3.4 cm MV Deceleration Time 440.0 ms TV Peak Velocity 277.0 cm/s TV Peak E Velocity 43.4 cm/s TV Peak A Velocity 33.1 cm/s TV E to A Ratio 1.3 Right Atrial Pressure 5.0 mmHg PV Peak Velocity 82.0 cm/s PV Peak Gradient 2.7 mmHg PV Mean Velocity 61.4 cm/s PV Mean Gradient 2.0 mmHg PV Velocity Time Integral 21.8 cm LV E' Lateral Velocity 6.6 cm/s Mitral E to LV E' Lateral Ratio 14.9 LV E' Septal Velocity 6.7 cm/s Mitral E to LV E' Septal Ratio 14.7
[2018-05-05 08:10] LABS: ABSOLUTE BASOPHIL COUNT 0.1 /CUMM (0.0-0.2); ABSOLUTE EOSINOPHIL COUNT 0.5 /CUMM (0.0-0.7); ABSOLUTE GRANULOCYTE CT 7.7 /CUMM (1.4-6.5); ABSOLUTE MONOCYTE COUNT 0.7 /CUMM (0.10-0.60); BASOPHIL % 0.6 % (0.0-2.0); EOSINOPHIL % 4.5 % (0-5); HEMATOCRIT 40.4 % (37-47); MEAN CORPUSCULAR HGB 30.8 PG (27.0-31.0); MEAN CORPUSCULAR VOLUME 93.3 FL (81.0-99.0); MEAN PLATELET VOLUME 9.4 FL (7.4-10.4); PLATELET COUNT 309 /CUMM (130-400); RBC DISTRIBUTION WIDTH 15.1 % (11.5-14.5); RED BLOOD CELL CT 4.33 /CUMM (4.20-5.40)
--- NOTE | 2018-05-05 10:16 | PN- Housestaff ---
Lewis Owusu 05/05/18 1016: Subjective Follow-up For: CVA Elevated troponins Complaints: no complaints Subjective: Patient seen and examined at the bedside. Patient in good spirits this morning, states she is still not having any chest pain or other symptoms concerning for ACS. Troponins continue to trend down. Awaiting recommendations from neurology regarding disposition. Otherwise no complaints. Denies any pain. Denies fever/chills/night sweats/chest pain/abdominal pain/ urinary symptoms. Review of Systems Constitutional: Reports: see HPI. Objective Last 24 Hrs of Vital Signs/I&O Vital Signs Date Time Temp Pulse Resp B/P B/P Pulse O2 O2 Flow FiO2 Mean Ox Delivery Rate 05/05 0931 62 130/66 05/05 0655 98.0 57 20 150/84 94 Room Air 05/04 2233 98.4 54 21 160/98 95 05/04 2230 Room Air 05/04 2045 98.1 60 18 158/82 96 Room Air 05/04 1645 99.0 56 18 148/63 94 Room Air 05/04 1356 62 20 180/80 99 Room Air Intake & Output 05/05 1600 05/05 0800 05/05 0000 Intake Total 200 Output Total 200 Balance 200 -200 Intake, Oral 200 Output, Urine 200 Patient 201 lb Weight Weight Bed scale Measurement Method Physical Exam General Appearance: Alert, Oriented X3, Cooperative, No Acute Distress Skin: No Rashes, No Breakdown, No Significant Lesion Skin Temp/Moisture Exam: Warm/Dry HEENT: Atraumatic, PERRLA, EOMI, Mucous Membr. moist/pink Cardiovascular: Regular Rate, Normal S1, Normal S2, No Murmurs, Gallops, Rubs Lungs: Clear to Auscultation, Normal Air Movement Abdomen: Soft, No Tenderness, No Hepatospenomegaly Neurological: Normal Speech (slightly dysarthric), Strength at 5/5 X4 Ext, Normal Tone, Sensation Intact Extremities: No Clubbing, No Cyanosis, No Edema Current Medications: Current Medications Sig/Suzanne Start time Last Medication Dose Route Stop Time Status Admin Aspirin 81 MG DAILY 05/05 1034 AC PO Aspirin 0 .STK-MED ONE 05/04 1544 DC PO Aspirin 325 MG ONCE ONE 05/04 1445 DC 05/04 PO 05/04 1446 1542 Atorvastatin Calcium 80 MG 1700 05/04 1830 AC 05/04 PO 1930 Escitalopram Oxalate 5 MG DAILY 05/05 900 AC 05/05 PO 0931 Influenza Virus 0.5 ML ONCE ONE 05/05 730 DC Vaccine IM 05/05 07 Levothyroxine Sodium 0.05 MG DAILY AC 05/05 07 AC 05/05 PO 0636 Nebivolol 5 MG DAILY 05/05 09 AC 05/05 PO 0931 Last 24 Hrs of Lab/Jae Results Last 24 Hrs of Labs/Mics: Laboratory Tests 05/05/18 0605: Anion Gap 5, Estimated GFR 53 L, BUN/Creatinine Ratio 22.0, Troponin I 1.52 *H, CBC w Diff NO MAN DIFF REQ, RBC 4.33, MCV 93.3, MCH 30.8, MCHC 33.0, RDW 15.1 H , MPV 9.4, Gran % 70.0, Lymphocytes % 18.6 L, Monocytes % 6.3, Eosinophils % 4.5, Basophils % 0.6, Absolute Granulocytes 7.7 H, Absolute Lymphocytes 2.0, Absolute Monocytes 0.7 H, Absolute Eosinophils 0.5, Absolute Basophils 0.1 05/05/18 0010: Troponin I 1.80 *H 05/04/18 1855: Troponin I 2.24 *H 05/04/18 1130: Anion Gap 6, Estimated GFR 53 L, BUN/Creatinine Ratio 23.0, Glucose 98, Calcium 9.2, Total Bilirubin 0.4, AST 37 H, ALT 23, Alkaline Phosphatase 87, Troponin I 2.87 *H, Total Protein 6.8, Albumin 3.7, Globulin 3.1, Albumin/Globulin Ratio 1.2, Triglycerides 105, Cholesterol 135, LDL Cholesterol, Calc 55 L, HDL Cholesterol 59, Cholesterol/HDL Ratio 2, TSH 0.975, PT 12.5, INR 1.15, APTT 35, CBC w Diff NO MAN DIFF REQ, RBC 4.48, MCV 90.9, MCH 30.3, MCHC 33.3, RDW 14.7 H , MPV 8.7, Gran % 81.1 H, Lymphocytes % 11.2 L, Monocytes % 6.5, Eosinophils % 1.0, Basophils % 0.2, Absolute Granulocytes 10.6 H, Absolute Lymphocytes 1.5, Absolute Monocytes 0.9 H, Absolute Eosinophils 0.1, Absolute Basophils 0, Lyme Disease Antibody Cancelled Orders ECHO Findings: LVEF 60-65% Radiology Findings: MRI head pending CT head showed no acute hemorrhage Assessment/Plan Assessment: 82 year old female past medical history of hypertension, hypercholesterolemia, hypothyroidism, status post parathyroidectomy who presents for evaluation of left facial droop and slurred speech that began yesterday at approximately 1700. Problem list/plan: CVA/TIA -Admit to telemetry floor to rule out malignant arrhythmia as cause -I's & O's q shift, vitals per protocol -Head CT showed no acute hemorrhage -MRI brain will have higher sensitivity for ischemic stroke -neuro consult -Carotid doppler to look for atherosclerotic lesions -Patient started on aspirin 325 daily (patient is not aspirin compliant at home) -Passed bedside swallow eval. Formal consult in the am Elevated troponins -Patient found to have elevated troponins on routine ED -trend EKG and troponin Hypertension -restart bystolic 5mg, Hyperlipidemia -convert home simvastatin to high dose 80 mg atorvastatin given concern for stroke -hold home amlodipine and quinapril Hypothyroid -continue home levothyroxine 50mcg/d DVT prophylaxis: ALPS Patient bedside swallow eval - Heart healthy diet Patient is DNR/DNI Problem List: 1. CVA (cerebral vascular accident) 2. Hypertension 3. Hyperlipidemia 4. Hypothyroidism Pain Ratin Pain Location: none Pain Goal: Remain pain free Pain Plan: as per ain plan Tomorrow's Labs & Rationales: none Agustina GARNER,Joselyn 05/05/18 1034: Attending MD Review Statement Attending Statement Attending MD Statement: examined this patient, discuss w/resident/PA/KIDNEY PULLER, agreed w/resident/PA/KIDNEY PULLER, reviewed EMR data (avail), discussed with nursing, discussed with case mgmt, reviewed images Attending Assessment/Plan: 82-year-old female past medical history of hypertension, hyperlipidemia, hypothyroidism who is here with what we thought was an acute CVA. She has a facial droop but no other weakness now. Overnight her troponins were elevated. She has no EKG changes and no wall motion abnormalities in her echo. At this point we are treating her with aspirin, statin, beta-pat and will restart her TERELL inhibitor. Will discuss with cardiology and neurology and we are pending an MRI.
--- NOTE | 2018-05-05 10:58 | Cons- Cardiology ---
General Information and HPI Consulting Request Date of Consult: 05/05/18 Requested By: Agustina GARNER,Joselyn Pagan Source of Information: patient, old records Exam Limitations: no limitations Allergies/Medications Allergies: Coded Allergies: shrimp (UNKNOWN 12/31/16) strawberry (UNKNOWN 12/31/16) Home Med List: Amlodipine Besylate 5 MG TABLET 1 TAB PO DAILY HEART (Reported) Antiox#10/Om3/Dha/Epa/Lut/Zeax (I-Caps With Lutein-[place] 3 Sfg) 280 MG (78 MG- 148 MG)-10 MG-2 MG CAPSULE 1 CAP PO DAILY EYE (Reported) Aspirin (Aspirin*) 81 MG TAB.CHEW 1 TAB PO DAILY HEART HEALTH (Reported) Cholecalciferol (Vitamin D3) (Vitamin D3) 2,000 UNIT TABLET 1 TAB PO DAILY VITAMIN SUPPORT (Reported) Escitalopram Oxalate (Lexapro) 5 MG TABLET 1 TAB PO DAILY MENTAL HEALTH ( Reported) Levothyroxine Sodium (Levoxyl) 50 MCG TABLET 1 TAB PO DAILY AC THYROID ( Reported) Multivitamin (Daily Multiple Vitamin) 1 EACH TABLET 1 TAB PO DAILY SUPPLEMENT (Reported) Nebivolol HCl (Bystolic) 5 MG TABLET 1 TAB PO DAILY HEART (Reported) Olopatadine HCl (Patanol) 0.1 % DROPS 1 GTT OPH BID EYE (Reported) Quinapril HCl (Accupril) 40 MG TABLET 1 TAB PO DAILY HEART (Reported) Simvastatin (Zocor*) 20 MG TABLET 1 TAB PO QPM CHOLESTEROL (Reported) Sodium Chloride (Rhinaris) 0.2 % SPRAY 1 SPRAY PHILIPPE DAILY ALLERGIES (Reported) Current Medications: Current Medications Sig/Suzanne Start time Last Medication Dose Route Stop Time Status Admin Aspirin 81 MG DAILY 05/05 1034 AC PO Aspirin 0 .STK-MED ONE 05/04 1544 DC PO Aspirin 325 MG ONCE ONE 05/04 1445 DC 05/04 PO 05/04 1446 1542 Atorvastatin Calcium 80 MG 1700 05/04 1830 AC 05/04 PO 1930 Escitalopram Oxalate 5 MG DAILY 05/05 0900 AC 05/05 PO 0931 Influenza Virus 0.5 ML ONCE ONE 05/05 0730 DC Vaccine IM 05/05 0731 Levothyroxine Sodium 0.05 MG DAILY AC 05/05 0700 AC 05/05 PO 0636 Nebivolol 5 MG DAILY 05/05 0900 AC 05/05 PO 0931 Past History Travel History Traveled to [place] past 21 day No Medical History Blood Transfusion Hx: No Neurological: NONE EENT: NONE Cardiovascular: HTN,CHOL Respiratory: NONE Gastrointestinal: GALLBLADDER REMOVED 2004 Hepatic: NONE Renal: NONE Musculoskeletal: NONE Psychiatric: NONE Endocrine: THYROID Blood Disorders: NONE Cancer(s): NONE PROTOTYPE SEWER/Reproductive: NONE Surgical History Surgical History: PARATHYROIDECTOMY Psychosocial History Where Do You Live? Home Services at Home: None Smoking Status: Never Smoked Other Social History: FAMILY HISTORY IS NON CONTRIBUTORY Functional Ability ADLs Independent: dressing, eating, toileting, bathing. Ambulation: walker IADLs Independent: shopping, housework, finances, food prep, telephone, transportation , medication admin. Exam & Diagnostic Data Vital Signs and I&O Vital Signs Date Time Temp Pulse Resp B/P B/P Pulse O2 O2 Flow FiO2 Mean Ox Delivery Rate 05/05 931 62 130/66 05/05 0655 98.0 57 20 150/84 94 Room Air 05/04 2233 98.4 54 21 160/98 95 05/04 2230 Room Air 05/04 2045 98.1 60 18 158/82 96 Room Air 05/04 1645 99.0 56 18 148/63 94 Room Air 05/04 1356 62 20 180/80 99 Room Air Intake & Output 05/05 1600 05/05 0800 05/05 0000 05/04 1600 05/04 0800 05/04 0000 Intake Total 200 Output Total 200 Balance 200 -200 Intake, Oral 200 Output, Urine 200 Patient 201 lb 191 lb Weight Weight Bed scale Reported by Patient Measurement Method Labs/Jae Results: Laboratory Tests 05/05 05/05 05/04 0605 0010 1855 Chemistry Sodium (137 - 145 mmol/L) 139 Potassium (3.5 - 5.1 mmol/L) 4.2 Chloride (98 - 107 mmol/L) 107 Carbon Dioxide (22 - 30 mmol/L) 27 Anion Gap (5 - 16) 5 BUN (7 - 17 mg/dL) 22 H Creatinine (0.5 - 1.0 mg/dL) 1.0 Estimated GFR (>60 ml/min) 53 L BUN/Creatinine Ratio (7 - 25 %) 22.0 Troponin I (< 0.11 ng/ml) 1.52 *H 1.80 *H 2.24 *H Hematology CBC w Diff NO MAN DIFF REQ WBC (4.8 - 10.8 /CUMM) 11.0 H RBC (4.20 - 5.40 /CUMM) 4.33 Hgb (12.0 - 16.0 G/DL) 13.4 Hct (37 - 47 %) 40.4 MCV (81.0 - 99.0 FL) 93.3 MCH (27.0 - 31.0 PG) 30.8 MCHC (33.0 - 37.0 G/DL) 33.0 RDW (11.5 - 14.5 %) 15.1 H Plt Count (130 - 400 /CUMM) 309 MPV (7.4 - 10.4 FL) 9.4 Gran % (42.2 - 75.2 %) 70.0 Lymphocytes % (20.5 - 51.1 %) 18.6 L Monocytes % (1.7 - 9.3 %) 6.3 Eosinophils % (0 - 5 %) 4.5 Basophils % (0.0 - 2.0 %) 0.6 Absolute Granulocytes (1.4 - 6.5 /CUMM) 7.7 H Absolute Lymphocytes (1.2 - 3.4 /CUMM) 2.0 Absolute Monocytes (0.10 - 0.60 /CUMM) 0.7 H Absolute Eosinophils (0.0 - 0.7 /CUMM) 0.5 Absolute Basophils (0.0 - 0.2 /CUMM) 0.1 05/04 05/04 1130 1117 Chemistry Sodium (137 - 145 mmol/L) 138 Potassium (3.5 - 5.1 mmol/L) 4.2 Chloride (98 - 107 mmol/L) 103 Carbon Dioxide (22 - 30 mmol/L) 30 Anion Gap (5 - 16) 6 BUN (7 - 17 mg/dL) 23 H Creatinine (0.5 - 1.0 mg/dL) 1.0 Estimated GFR (>60 ml/min) 53 L BUN/Creatinine Ratio (7 - 25 %) 23.0 Glucose (65 - 99 mg/dL) 98 Calcium (8.4 - 10.2 mg/dL) 9.2 Total Bilirubin (0.2 - 1.3 mg/dL) 0.4 AST (14 - 36 U/L) 37 H ALT (9 - 52 U/L) 23 Alkaline Phosphatase (<127 U/L) 87 Troponin I (< 0.11 ng/ml) 2.87 *H Total Protein (6.3 - 8.2 g/dL) 6.8 Albumin (3.5 - 5.0 g/dL) 3.7 Globulin (1.9 - 4.2 gm/dL) 3.1 Albumin/Globulin Ratio (1.1 - 2.2 %) 1.2 Triglycerides (<150 mg/dL) 105 Cholesterol (<200 MG/DL) 135 LDL Cholesterol, Calc (65 - 129 mg/dL) 55 L HDL Cholesterol (40 - 60 mg/dL) 59 Cholesterol/HDL Ratio (0.00 - 4.23 %) 2 TSH (0.270 - 4.200 uIU/mL) 0.975 Coagulation PT (9.4 - 12.5 SEC) 12.5 INR (0.90 - 1.19) 1.15 APTT (25 - 37 SEC) 35 Hematology CBC w Diff NO MAN DIFF REQ WBC (4.8 - 10.8 /CUMM) 13.0 H RBC (4.20 - 5.40 /CUMM) 4.48 Hgb (12.0 - 16.0 G/DL) 13.5 Hct (37 - 47 %) 40.7 MCV (81.0 - 99.0 FL) 90.9 MCH (27.0 - 31.0 PG) 30.3 MCHC (33.0 - 37.0 G/DL) 33.3 RDW (11.5 - 14.5 %) 14.7 H Plt Count (130 - 400 /CUMM) 302 MPV (7.4 - 10.4 FL) 8.7 Gran % (42.2 - 75.2 %) 81.1 H Lymphocytes % (20.5 - 51.1 %) 11.2 L Monocytes % (1.7 - 9.3 %) 6.5 Eosinophils % (0 - 5 %) 1.0 Basophils % (0.0 - 2.0 %) 0.2 Absolute Granulocytes (1.4 - 6.5 /CUMM) 10.6 H Absolute Lymphocytes (1.2 - 3.4 /CUMM) 1.5 Absolute Monocytes (0.10 - 0.60 /CUMM) 0.9 H Absolute Eosinophils (0.0 - 0.7 /CUMM) 0.1 Absolute Basophils (0.0 - 0.2 /CUMM) 0 Serology Lyme Disease Screen (() index) <0.90 Lyme Disease Antibody Cancelled Assessment/Plan Consult Acknowledgment - Thank you for your consult request.
--- NOTE | 2018-05-05 11:16 | Cons- Cardiology ---
General Information and HPI Consulting Request Date of Consult: 05/05/18 Requested By: Joselyn Berrios MD Reason for Consult: elevated troponin Primary fittings finisher: Dr. Christianson Source of Information: patient, old records History of Present Illness: This is an 82-year-old female with a past medical history of hypertension, hyperlipidemia, hypothyroidism, and chronic right bundle branch block who presents to [facility] with a chief complaint of difficulty speaking and left-sided facial droop. She tells me she was seeing [facility] for sciatica and was given some sort of supplement and later that day was noticed by her family to have the facial droop and difficulty speaking. She denies any chest pain, dyspnea, or palpitations. She has had some chronic and nonexertional jaw pain which is unchanged. She does report some nausea. She denies syncope, fever, or productive cough. Denies any prior history of CVA. She does report some weakness. Allergies/Medications Allergies: Coded Allergies: shrimp (UNKNOWN 12/31/16) strawberry (UNKNOWN 12/31/16) Home Med List: Amlodipine Besylate 5 MG TABLET 1 TAB PO DAILY HEART (Reported) Antiox#10/Om3/Dha/Epa/Lut/Zeax (I-Caps With Lutein-[place] 3 Sfg) 280 MG (78 MG- 148 MG)-10 MG-2 MG CAPSULE 1 CAP PO DAILY EYE (Reported) Aspirin (Aspirin*) 81 MG TAB.CHEW 1 TAB PO DAILY HEART HEALTH (Reported) Cholecalciferol (Vitamin D3) (Vitamin D3) 2,000 UNIT TABLET 1 TAB PO DAILY VITAMIN SUPPORT (Reported) Escitalopram Oxalate (Lexapro) 5 MG TABLET 1 TAB PO DAILY MENTAL HEALTH ( Reported) Levothyroxine Sodium (Levoxyl) 50 MCG TABLET 1 TAB PO DAILY AC THYROID ( Reported) Multivitamin (Daily Multiple Vitamin) 1 EACH TABLET 1 TAB PO DAILY SUPPLEMENT (Reported) Nebivolol HCl (Bystolic) 5 MG TABLET 1 TAB PO DAILY HEART (Reported) Olopatadine HCl (Patanol) 0.1 % DROPS 1 GTT OPH BID EYE (Reported) Quinapril HCl (Accupril) 40 MG TABLET 1 TAB PO DAILY HEART (Reported) Simvastatin (Zocor*) 20 MG TABLET 1 TAB PO QPM CHOLESTEROL (Reported) Sodium Chloride (Rhinaris) 0.2 % SPRAY 1 SPRAY PHILIPPE DAILY ALLERGIES (Reported) Current Medications: Current Medications Sig/Suzanne Start time Last Medication Dose Route Stop Time Status Admin Aspirin 81 MG DAILY 05/05 1034 AC PO Aspirin 0 .STK-MED ONE 05/04 1544 DC PO Aspirin 325 MG ONCE ONE 05/04 1445 DC 05/04 PO 05/04 1446 1542 Atorvastatin Calcium 80 MG 1700 05/04 1830 AC 05/04 PO 1930 Escitalopram Oxalate 5 MG DAILY 05/05 09 AC 05/05 PO 0931 Influenza Virus 0.5 ML ONCE ONE 05/05 0730 DC Vaccine IM 05/05 0731 Levothyroxine Sodium 0.05 MG DAILY AC 05/05 0700 AC 05/05 PO 0636 Nebivolol 5 MG DAILY 05/05 09 AC 05/05 PO 0931 Review of Systems Review of Systems: Review of systems as per HPI. The remainder of a 10 point review of systems was reviewed and was otherwise negative. Past History Travel History Traveled to [place] past 21 day No Medical History Blood Transfusion Hx: No Neurological: NONE EENT: NONE Cardiovascular: HTN,CHOL Respiratory: NONE Gastrointestinal: GALLBLADDER REMOVED 2004 Hepatic: NONE Renal: NONE Musculoskeletal: NONE Psychiatric: NONE Endocrine: THYROID Blood Disorders: NONE Cancer(s): NONE DOCUMENTATION LEAD/Reproductive: NONE Surgical History Surgical History: PARATHYROIDECTOMY Psychosocial History Where Do You Live? Home Services at Home: None Smoking Status: Never Smoked Other Social History: FAMILY HISTORY IS NON CONTRIBUTORY Functional Ability ADLs Independent: dressing, eating, toileting, bathing. Ambulation: walker IADLs Independent: shopping, housework, finances, food prep, telephone, transportation , medication admin. Exam & Diagnostic Data Vital Signs and I&O Vital Signs Date Time Temp Pulse Resp B/P B/P Pulse O2 O2 Flow FiO2 Mean Ox Delivery Rate 05/05 931 62 130/66 05/05 0655 98.0 57 20 150/84 94 Room Air 05/04 2233 98.4 54 21 160/98 95 05/040 Room Air 05/04 2045 98.1 60 18 158/82 96 Room Air 05/04 1645 99.0 56 18 148/63 94 Room Air 05/04 1356 62 20 180/80 99 Room Air Intake & Output 05/05 1600 05/05 0800 05/05 0000 05/04 1600 05/04 0805/04 0000 Intake Total 200 Output Total 200 Balance 200 -200 Intake, Oral 200 Output, Urine 200 Patient 201 lb 191 lb Weight Weight Bed scale Reported by Patient Measurement Method Physical Exam: General: no apparent distress. Alert. Eyes: No obvious scleral icterus. HEENT: No jugular venous distention or abnormal jugular venous pulsations. Cardiovascular: Normal intensity S1/S2. PMI not grossly displaced. Respiratory: Lungs clear to auscultation bilaterally. Abdomen: Soft, nontender with no guarding or rebound tenderness. Musculoskeletal: No clubbing or cyanosis noted Skin: warm Neurologic: Left-sided facial droop Lymph: No gross lymphadenopathy. Labs/Jae Results: Laboratory Tests 05/05 05/05 05/04 0605 0010 1855 Chemistry Sodium (137 - 145 mmol/L) 139 Potassium (3.5 - 5.1 mmol/L) 4.2 Chloride (98 - 107 mmol/L) 107 Carbon Dioxide (22 - 30 mmol/L) 27 Anion Gap (5 - 16) 5 BUN (7 - 17 mg/dL) 22 H Creatinine (0.5 - 1.0 mg/dL) 1.0 Estimated GFR (>60 ml/min) 53 L BUN/Creatinine Ratio (7 - 25 %) 22.0 Troponin I (< 0.11 ng/ml) 1.52 *H 1.80 *H 2.24 *H Hematology CBC w Diff NO MAN DIFF REQ WBC (4.8 - 10.8 /CUMM) 11.0 H RBC (4.20 - 5.40 /CUMM) 4.33 Hgb (12.0 - 16.0 G/DL) 13.4 Hct (37 - 47 %) 40.4 MCV (81.0 - 99.0 FL) 93.3 MCH (27.0 - 31.0 PG) 30.8 MCHC (33.0 - 37.0 G/DL) 33.0 RDW (11.5 - 14.5 %) 15.1 H Plt Count (130 - 400 /CUMM) 309 MPV (7.4 - 10.4 FL) 9.4 Gran % (42.2 - 75.2 %) 70.0 Lymphocytes % (20.5 - 51.1 %) 18.6 L Monocytes % (1.7 - 9.3 %) 6.3 Eosinophils % (0 - 5 %) 4.5 Basophils % (0.0 - 2.0 %) 0.6 Absolute Granulocytes (1.4 - 6.5 /CUMM) 7.7 H Absolute Lymphocytes (1.2 - 3.4 /CUMM) 2.0 Absolute Monocytes (0.10 - 0.60 /CUMM) 0.7 H Absolute Eosinophils (0.0 - 0.7 /CUMM) 0.5 Absolute Basophils (0.0 - 0.2 /CUMM) 0.1 05/04 05/04 1130 1117 Chemistry Sodium (137 - 145 mmol/L) 138 Potassium (3.5 - 5.1 mmol/L) 4.2 Chloride (98 - 107 mmol/L) 103 Carbon Dioxide (22 - 30 mmol/L) 30 Anion Gap (5 - 16) 6 BUN (7 - 17 mg/dL) 23 H Creatinine (0.5 - 1.0 mg/dL) 1.0 Estimated GFR (>60 ml/min) 53 L BUN/Creatinine Ratio (7 - 25 %) 23.0 Glucose (65 - 99 mg/dL) 98 Calcium (8.4 - 10.2 mg/dL) 9.2 Total Bilirubin (0.2 - 1.3 mg/dL) 0.4 AST (14 - 36 U/L) 37 H ALT (9 - 52 U/L) 23 Alkaline Phosphatase (<127 U/L) 87 Troponin I (< 0.11 ng/ml) 2.87 *H Total Protein (6.3 - 8.2 g/dL) 6.8 Albumin (3.5 - 5.0 g/dL) 3.7 Globulin (1.9 - 4.2 gm/dL) 3.1 Albumin/Globulin Ratio (1.1 - 2.2 %) 1.2 Triglycerides (<150 mg/dL) 105 Cholesterol (<200 MG/DL) 135 LDL Cholesterol, Calc (65 - 129 mg/dL) 55 L HDL Cholesterol (40 - 60 mg/dL) 59 Cholesterol/HDL Ratio (0.00 - 4.23 %) 2 TSH (0.270 - 4.200 uIU/mL) 0.975 Coagulation PT (9.4 - 12.5 SEC) 12.5 INR (0.90 - 1.19) 1.15 APTT (25 - 37 SEC) 35 Hematology CBC w Diff NO MAN DIFF REQ WBC (4.8 - 10.8 /CUMM) 13.0 H RBC (4.20 - 5.40 /CUMM) 4.48 Hgb (12.0 - 16.0 G/DL) 13.5 Hct (37 - 47 %) 40.7 MCV (81.0 - 99.0 FL) 90.9 MCH (27.0 - 31.0 PG) 30.3 MCHC (33.0 - 37.0 G/DL) 33.3 RDW (11.5 - 14.5 %) 14.7 H Plt Count (130 - 400 /CUMM) 302 MPV (7.4 - 10.4 FL) 8.7 Gran % (42.2 - 75.2 %) 81.1 H Lymphocytes % (20.5 - 51.1 %) 11.2 L Monocytes % (1.7 - 9.3 %) 6.5 Eosinophils % (0 - 5 %) 1.0 Basophils % (0.0 - 2.0 %) 0.2 Absolute Granulocytes (1.4 - 6.5 /CUMM) 10.6 H Absolute Lymphocytes (1.2 - 3.4 /CUMM) 1.5 Absolute Monocytes (0.10 - 0.60 /CUMM) 0.9 H Absolute Eosinophils (0.0 - 0.7 /CUMM) 0.1 Absolute Basophils (0.0 - 0.2 /CUMM) 0 Serology Lyme Disease Screen (() index) <0.90 Lyme Disease Antibody Cancelled Diagnostic Data EKG Results Tracing was personally reviewed and shows sinus bradycardia 53 bpm with right bundle branch block Other Results echo Normal left ventricular systolic function with mild LVH. Dilated left atrium. No significant valvular abnormalities noted. Carotid ultrasound No hemodynamically significant stenosis in either carotid artery. Normal antegrade flow seen in both vertebral arteries. Assessment/Plan Assessment/Plan 1. Suspected acute CVA 2. History of hypertension 3. History of hyperlipidemia 4. Chronic right bundle branch block 5. Elevated troponin likely due to acute CVA 6. Sinus bradycardia due to beta-pat use The patient has no ischemic symptoms and no evidence of wall motion abnormality on echocardiogram; there is also no evidence of Takatsubos on Echo. I suspect the elevated troponin is likely due to acute CVA; follow-up neurology recommendations; agree with obtaining MRI. Carotid ultrasound shows no evidence of obstructive disease. Can continue on the beta-pat. Agree with daily aspirin and statin therapy. Continue to monitor for any evidence of silent atrial fibrillation. She may be a candidate for noninvasive ischemic testing as an outpatient in the future. Damien Quiñonez MD [facility] Consult Acknowledgment - Thank you for your consult request.
--- NOTE | 2018-05-05 11:57 | MRI REPORT ---
EXAMINATION: MR BRAIN WITHOUT CONTRAST CLINICAL INFORMATION: Stroke. Facial droop and dysarthria. COMPARISON: CT head dated 05/04/2018. TECHNIQUE: MRI of the brain without contrast was obtained using routine sequences. FINDINGS: There are numerous subcentimeter foci of abnormal restricted diffusion scattered throughout the right frontal lobe, left frontal lobe, right parietal lobe, right occipital lobe, and bilateral cerebellar hemispheres. Additional areas of abnormal restricted diffusion are seen within the medial right thalamus, medial left thalamus, right caudate head and right barrientos radiata. There is no significant mass effect associated with these areas of acute/subacute infarction. There is no gross hemorrhagic conversion. There is extensive microvascular ischemic disease. There is mild cerebral atrophy. No intracranial mass, intra-axial blood products, midline shift, or extra-axial collection is visualized. Normal arterial and venous vascular flow voids are present. There is scattered, mild ethmoid air cell mucosal disease. Mastoid air cells are clear. IMPRESSION: Numerous subcentimeter acute/subacute cerebral and cerebellar infarctions as detailed above. There is extensive microvascular ischemic disease. There is mild cerebral atrophy.
--- NOTE | 2018-05-05 13:28 | Cons- Neurology ---
General Information and HPI Consulting Request Date of Consult: 05/05/18 Requested By: Agustina GARNER,Joselyn Pagan History of Present Illness: 82-year-old female in her usual state of health until yesterday when she was noted by her family to have acute slurring of speech and facial asymmetry. The patient herself was essentially unaware of these complaints however she did feel somewhat unwell. She has no prior history of stroke. She does have vascular risk factors in the way of hypertension and hyperlipidemia. She takes aspirin irregularly. She feels well this afternoon without significant complaint. Prior to her admission, she was fully independent with ambulation and activities of daily living. Carotid ultrasound and CAT scan of the brain were unremarkable. MRI completed several hours ago shows multifocal, acute and chronic, subcentimeter infarcts involving the frontal head regions bilaterally, the right parietal and occipital region, bilateral cerebellum, right caudate and right barrientos radiata Allergies/Medications Allergies: Coded Allergies: shrimp (UNKNOWN 12/31/16) strawberry (UNKNOWN 12/31/16) Home Med List: Amlodipine Besylate 5 MG TABLET 1 TAB PO DAILY HEART (Reported) Antiox#10/Om3/Dha/Epa/Lut/Zeax (I-Caps With Lutein-[place] 3 Sfg) 280 MG (78 MG- 148 MG)-10 MG-2 MG CAPSULE 1 CAP PO DAILY EYE (Reported) Aspirin (Aspirin*) 81 MG TAB.CHEW 1 TAB PO DAILY HEART HEALTH (Reported) Cholecalciferol (Vitamin D3) (Vitamin D3) 2,000 UNIT TABLET 1 TAB PO DAILY VITAMIN SUPPORT (Reported) Escitalopram Oxalate (Lexapro) 5 MG TABLET 1 TAB PO DAILY MENTAL HEALTH ( Reported) Levothyroxine Sodium (Levoxyl) 50 MCG TABLET 1 TAB PO DAILY AC THYROID ( Reported) Multivitamin (Daily Multiple Vitamin) 1 EACH TABLET 1 TAB PO DAILY SUPPLEMENT (Reported) Nebivolol HCl (Bystolic) 5 MG TABLET 1 TAB PO DAILY HEART (Reported) Olopatadine HCl (Patanol) 0.1 % DROPS 1 GTT OPH BID EYE (Reported) Quinapril HCl (Accupril) 40 MG TABLET 1 TAB PO DAILY HEART (Reported) Simvastatin (Zocor*) 20 MG TABLET 1 TAB PO QPM CHOLESTEROL (Reported) Sodium Chloride (Rhinaris) 0.2 % SPRAY 1 SPRAY PHILIPPE DAILY ALLERGIES (Reported) Review of Systems Review of Systems: Negative for recent fever, chills, rash, headache, diplopia, dysphagia, chest pain, cough, vomiting, vertigo, joint inflammation or abnormal bleeding. She does endorse history of intermittent left-sided sciatica. Past History Travel History Traveled to [place] past 21 day No Medical History Blood Transfusion Hx: No Neurological: NONE EENT: NONE Cardiovascular: HTN,CHOL Respiratory: NONE Gastrointestinal: GALLBLADDER REMOVED 2004 Hepatic: NONE Renal: NONE Musculoskeletal: NONE Psychiatric: NONE Endocrine: THYROID Blood Disorders: NONE Cancer(s): NONE TURF GROWER/Reproductive: NONE Surgical History Surgical History: PARATHYROIDECTOMY Psychosocial History Where Do You Live? Home Services at Home: None Smoking Status: Never Smoked Other Social History: FAMILY HISTORY IS NON CONTRIBUTORY Functional Ability ADLs Independent: dressing, eating, toileting, bathing. Ambulation: walker IADLs Independent: shopping, housework, finances, food prep, telephone, transportation , medication admin. Exam & Diagnostic Data Vital Signs and I&O Vital Signs Date Time Temp Pulse Resp B/P B/P Pulse O2 O2 Flow FiO2 Mean Ox Delivery Rate 05/05 0931 62 130/66 05/05 0655 98.0 57 20 150/84 94 Room Air 05/04 2233 98.4 54 21 160/98 95 05/04 2230 Room Air 05/04 2045 98.1 60 18 158/82 96 Room Air 05/04 1645 99.0 56 18 148/63 94 Room Air 05/04 1356 62 20 180/80 99 Room Air Intake & Output 05/05 1600 05/05 0800 05/05 0000 Intake Total 200 Output Total 200 Balance 200 -200 Intake, Oral 200 Output, Urine 200 Patient 201 lb Weight Weight Bed scale Measurement Method Pleasant elderly female in no acute distress. She was sitting up and feeding herself lunch. The head was normocephalic. Higher cortical function was grossly intact. Speech was fluent. Pupils were equal. Extraocular movements were full. There was no field cut. She had a subtle left facial paresis, upper motor neuron type, with flattening of the left nasolabial fold. Facial sensation and hearing was normal. Tongue was midline; there was no dysarthria. Motor examination showed no drift of the upper extremities. There was no gross focal or lateralizing weakness. Deep tendon reflexes were symmetric. Plantar responses were flexor. Assessment/Plan Assessment: Lynn presents with acute dysarthria and left facial weakness. She is currently stable. Her MRI, however, shows multifocal, bihemispheric and cerebellar infarcts which are suggestive of emboli. Recommendations: Although the infarcts appear acute, I would think that the risk of empirically anticoagulating at this point in time is less than the risk of further stroke with potential for devastating neurological deficits. I would start the patient on heparin without a bolus. Follow-up CT scan should be done tomorrow without contrast. She has already been seen by cardiology. I would ask that they consider a transesophageal echocardiogram and a prolonged event recorder if no significant arrhythmia such as atrial fibrillation is demonstrated while on telemetry. She should be seen by physical and occupational therapy however I do not think that she will require any long-term assistance. We will follow along with the medical team. Please feel free to call with any further questions. Consult Acknowledgment - Thank you for your consult request.
[2018-05-05 15:04] VITALS: BP 118/72
[2018-05-05 22:39] LABS: PTT 110 SEC (25-37)
[2018-05-05 22:52] VITALS: BP 142/76
[2018-05-06 07:31] VITALS: BP 152/82
[2018-05-06 08:34] LABS: ABSOLUTE BASOPHIL COUNT 0 /CUMM (0.0-0.2); ABSOLUTE EOSINOPHIL COUNT 0.6 /CUMM (0.0-0.7); ABSOLUTE GRANULOCYTE CT 6.4 /CUMM (1.4-6.5); ABSOLUTE LYMPH COUNT 2.1 /CUMM (1.2-3.4); ABSOLUTE MONOCYTE COUNT 0.6 /CUMM (0.10-0.60); BASOPHIL % 0.5 % (0.0-2.0); EOSINOPHIL % 6.3 % (0-5); GRANULOCYTE % 65.6 % (42.2-75.2); HEMATOCRIT 39.5 % (37-47); MEAN CORPUSCULAR HGB 31.4 PG (27.0-31.0); MEAN CORPUSCULAR HGB CONC 34.1 G/DL (33.0-37.0); MEAN PLATELET VOLUME 9.6 FL (7.4-10.4); PLATELET COUNT 294 /CUMM (130-400); RBC DISTRIBUTION WIDTH 14.6 % (11.5-14.5); RED BLOOD CELL CT 4.29 /CUMM (4.20-5.40); WHITE BLOOD CELL COUNT 9.7 /CUMM (4.8-10.8)
--- NOTE | 2018-05-06 08:42 | PN- Housestaff ---
See Addendum Brandy Orellana 05/06/18 0842: Subjective Follow-up For: CVA Elevated troponins Subjective: Afebrile overnight. Patient is seen and examined this morning. Patient is awake and sitting in her chair comfortably. Patient denies any chest pain, palpitations, shortness of breath, fevers, chills, and fatigue. Patient notes she did not experience any weakness or numbness when she presented and is feeling quite good today. Patient otherwise denies any new complaints today. Review of Systems Constitutional: Reports: see HPI. Objective Last 24 Hrs of Vital Signs/I&O Vital Signs Date Time Temp Pulse Resp B/P B/P Pulse O2 O2 Flow FiO2 Mean Ox Delivery Rate 05/06 0802 55 152/82 05/06 0731 98.4 55 20 152/82 94 Room Air 05/05 2252 98.9 55 18 142/76 93 Room Air 05/05 1504 97.6 58 20 118/72 96 Intake & Output 05/06 1600 05/06 0800 05/06 0000 Intake Total 371.6 120 Output Total 300 Balance 71.6 120 Intake, IV 131.6 Intake, Oral 240 120 Number 1 Bowel Movements Output, Urine 300 Patient 204 lb Weight Physical Exam General Appearance: Alert, Oriented X3, Cooperative, No Acute Distress Skin: No Rashes, No Breakdown Skin Temp/Moisture Exam: Warm/Dry HEENT: right eyelid droop Neck: Supple, No JVD Cardiovascular: Regular Rate, Normal S1, Normal S2 Lungs: Clear to Auscultation Abdomen: Soft, No Tenderness Neurological: Normal Speech Extremities: No Edema, Normal Pulses Assessment/Plan Assessment: 82 year old female past medical history of hypertension, hypercholesterolemia, hypothyroidism, status post parathyroidectomy who presents for evaluation of left facial droop and slurred speech that began yesterday at approximately 1700. Problem list/plan: CVA/TIA -Admit to telemetry floor to rule out malignant arrhythmia as cause -I's & O's q shift, vitals per protocol -Head CT showed no acute hemorrhage -MRI brain will have higher sensitivity for ischemic stroke -neuro consult -Carotid doppler to look for atherosclerotic lesions -Patient started on aspirin 325 daily (patient is not aspirin compliant at home) -Passed bedside swallow eval. Formal consult in the am -Follow up CT head w/o contrast; -ANIKA scheduled Tuesday (NPO Tuesday midnight) Elevated troponins -Patient found to have elevated troponins on routine ED -trend EKG and troponin Hypertension -restart bystolic 5mg, Hyperlipidemia -convert home simvastatin to high dose 80 mg atorvastatin given concern for stroke -hold home amlodipine and quinapril Hypothyroid -continue home levothyroxine 50mcg/d DVT prophylaxis: ALPS Patient bedside swallow eval - Heart healthy diet Code Status: DNR/DNI Problem List: 1. CVA (cerebral vascular accident) 2. Hypertension 3. Hyperlipidemia 4. Hypothyroidism Pain Ratin Pain Location: na Pain Goal: Remain pain free Pain Plan: prn meds Tomorrow's Labs & Rationales: routine Heriberto GARNER,Amir 05/06/18 1431: Attending MD Review Statement Attending Statement Attending MD Statement: examined this patient, discuss w/resident/PA/ETYMOLOGY PROFESSOR, agreed w/resident/PA/ETYMOLOGY PROFESSOR, reviewed EMR data (avail), discussed with nursing Attending Assessment/Plan: Pt was seen and evaluated. Pt denies any interval worsening of symptoms. --appreciate cards eval, plan for ANIKA --cont current plan of care --f/u CT scan findings --rest of the plan as per resident's note
[2018-05-06 09:00] LABS: PTT > 120 SEC (25-37)
--- NOTE | 2018-05-06 12:47 | PN- Cardiology ---
Subjective Subjective: Feeling well. No new complaints. No chest pain. No palpitations. No diaphoresis. No nausea or vomiting. Objective Vital Signs and I&Os Vital Signs Date Time Temp Pulse Resp B/P B/P Pulse O2 O2 Flow FiO2 Mean Ox Delivery Rate 05/06 0802 55 152/82 05/06 0731 98.4 55 20 152/82 94 Room Air 05/05 2252 98.9 55 18 142/76 93 Room Air 05/05 1504 97.6 58 20 118/72 96 Intake & Output 05/06 1600 05/06 0800 05/06 0000 05/05 1600 05/05 0800 05/05 0000 Intake Total 371.6 120 600 200 Output Total 300 200 Balance 71.6 120 600 200 -200 Intake, IV 131.6 Intake, Oral 240 120 600 200 Number 1 1 Bowel Movements Output, Urine 300 200 Patient 204 lb 201 lb Weight Weight Bed scale Measurement Method Physical Exam: Gen: NAD HEENT: normal Lungs: clear to auscultation, normal resp. effort Heart: RRR, S1, S2, no murmurs Abdomen: Soft, nontender, no masses Extremities: No clubbing, cyanosis, or edema. Neuro: Alert and oriented x 3, left facial weakness Current Medications: Current Medications Sig/Suzanne Start time Last Medication Dose Route Stop Time Status Admin Aspirin 81 MG DAILY 05/05 1034 AC 05/06 PO 0802 Atorvastatin Calcium 80 MG 1700 05/04 1830 AC 05/05 PO 1716 Escitalopram Oxalate 5 MG DAILY 05/05 0900 AC 05/06 PO 0802 Heparin Sodium 5,000 UNIT Q8 05/05 1402 DC (Porcine) SC Heparin Sodium/ 0 .STK-MED ONE 05/05 1500 DC Dextrose IV Heparin Sodium/ 25,000 UNIT Q24H 05/05 1430 AC 05/05 Dextrose IV 1535 Dextrose/Water 500 ML Levothyroxine Sodium 0.05 MG DAILY AC 05/05 0700 AC 05/06 PO 0632 Nebivolol 5 MG DAILY 05/05 09 AC 05/06 PO 0802 Patient Medication 1 ED ONE ONE 05/05 1845 DC Teaching ED 05/05 1846 Results Last 48 Hrs of Labs/Mics: Laboratory Tests 05/06/18 0639: APTT > 120 *H, CBC w Diff NO MAN DIFF REQ, RBC 4.29, MCV 92.0, MCH 31.4 H, MCHC 34.1, RDW 14.6 H, MPV 9.6, Gran % 65.6, Lymphocytes % 21.1, Monocytes % 6.5, Eosinophils % 6.3 H, Basophils % 0.5, Absolute Granulocytes 6.4, Absolute Lymphocytes 2.1, Absolute Monocytes 0.6, Absolute Eosinophils 0.6, Absolute Basophils 0 05/05/18 2120: APTT 110 *H 05/05/18 0605: Anion Gap 5, Estimated GFR 53 L, BUN/Creatinine Ratio 22.0, Troponin I 1.52 *H, CBC w Diff NO MAN DIFF REQ, RBC 4.33, MCV 93.3, MCH 30.8, MCHC 33.0, RDW 15.1 H , MPV 9.4, Gran % 70.0, Lymphocytes % 18.6 L, Monocytes % 6.3, Eosinophils % 4.5, Basophils % 0.6, Absolute Granulocytes 7.7 H, Absolute Lymphocytes 2.0, Absolute Monocytes 0.7 H, Absolute Eosinophils 0.5, Absolute Basophils 0.1 05/05/18 0010: Troponin I 1.80 *H 05/04/18 1855: Troponin I 2.24 *H Recent Imaging Studies: MRI head: Numerous subcentimeter acute/subacute cerebral and cerebellar infarctions as detailed above. There is extensive microvascular ischemic disease. There is mild cerebral atrophy. Echocardiogram 05/05/18: Normal left ventricular systolic function with mild LVH. Dilated left atrium. No significant valvular abnormalities noted. Assessment/Plan Assessment/Plan 1. Acute CVA, with evidence of multiple emboli on MRI scan 2. History of hypertension 3. History of hyperlipidemia 4. Chronic right bundle branch block 5. Elevated troponin likely due to acute CVA 6. Sinus bradycardia due to beta-pat use Plan: * Continue aspirin * Continue IV heparin * ANIKA Tuesday * N.p.o. after midnight Tuesday night Continue telemetry? Yes
--- NOTE | 2018-05-06 13:54 | PN- Neurology ---
Subjective Subjective: facial droop. No new complaints. Review of Systems: No headache, diplopia, dysphagia, chest pain, vomiting or vertigo Objective Vital Signs and I&Os Vital Signs Date Time Temp Pulse Resp B/P B/P Pulse O2 O2 Flow FiO2 Mean Ox Delivery Rate 05/06 0802 55 152/82 05/06 0731 98.4 55 20 152/82 94 Room Air 05/05 2252 98.9 55 18 142/76 93 Room Air 05/05 1504 97.6 58 20 118/72 96 Intake & Output 05/06 1600 05/06 0800 05/06 0000 05/05 1600 05/05 0805/05 0000 Intake Total 371.6 120 600 200 Output Total 300 200 Balance 71.6 120 600 200 -200 Intake, IV 131.6 Intake, Oral 240 120 600 200 Number 1 1 Bowel Movements Output, Urine 300 200 Patient 204 lb 201 lb Weight Weight Bed scale Measurement Method Awake and alert. In no acute distress. Mental status intact. Speech fluent. Pupils were equal. Extraocular movements were full. Left facial weakness is noted. There is no significant dysarthria. No drift of the upper extremities. No ataxia on finger to nose testing. Current Medications: Current Medications Sig/Suzanne Start time Last Medication Dose Route Stop Time Status Admin Aspirin 81 MG DAILY 05/05 1034 AC 05/06 PO 0802 Atorvastatin Calcium 80 MG 1700 05/04 1830 AC 05/05 PO 1716 Escitalopram Oxalate 5 MG DAILY 05/05 09 AC 05/06 PO 0802 Heparin Sodium 5,000 UNIT Q8 05/05 1402 DC (Porcine) SC Heparin Sodium/ 0 .STK-MED ONE 05/05 1500 DC Dextrose IV Heparin Sodium/ 25,000 UNIT Q24H 05/05 1430 AC 05/05 Dextrose IV 1535 Dextrose/Water 500 ML Levothyroxine Sodium 0.05 MG DAILY AC 05/05 0700 AC 05/06 PO 0632 Nebivolol 5 MG DAILY 05/05 09 AC 05/06 PO 0802 Patient Medication 1 ED ONE ONE 05/05 1845 DC Teaching ED 05/05 1846 Assessment/Plan Assessment: 1. Clinically minor CVA. #2 suggestion of cerebral emboli by virtue of multifocal, acute and subacute infarcts per imaging. Plan: Remain on heparin for present. ANIKA is planned by cardiology. Patient may be out of bed. Will follow.
[2018-05-06 14:22] VITALS: BP 136/68
--- NOTE | 2018-05-06 15:33 | CT SCAN REPORT ---
EXAMINATION: CT HEAD WITHOUT CONTRAST CLINICAL INFORMATION: Left facial droop. Assess for CVA or new bleed. COMPARISON: MRI scan of the brain 05/05/2018. TECHNIQUE: Contiguous axial imaging was performed from the skull base to vertex without intravenous administration of contrast. DLP: 616.8 mGy-cm FINDINGS: There is no evidence of acute intracranial hemorrhage or territorial infarction. No abnormal mass effect or midline shift is seen. Hewitt to white matter differentiation is well preserved. No extra-axial fluid collections are identified. The ventricles and sulci are commensurately prominent consistent with moderate diffuse volume loss. There are extensive areas of low attenuation in the periventricular and subcortical white matter consistent with chronic microvascular ischemic changes. There are areas of low attenuation in the right cerebellar hemisphere, consistent with evolving infarcts, demonstrated on prior imaging. There are atheromatous calcifications of the cavernous internal carotid arteries. There is hyperostosis frontalis interna. The soft tissues are unremarkable. The mastoid air cells and visualized portions of the paranasal sinuses are well aerated. IMPRESSION: 1. There are no acute bleeds. No masses are demonstrated. 2. There are extensive areas of low attenuation in the white matter, consistent with chronic microvascular ischemic changes. Areas of more acute infarction cannot be excluded on the basis of this study.
[2018-05-06 17:58] LABS: PTT 41 SEC (25-37)
[2018-05-06 22:22] VITALS: BP 124/80
[2018-05-07 02:18] LABS: PTT > 120 SEC (25-37)
[2018-05-07 06:50] VITALS: BP 157/74
--- NOTE | 2018-05-07 08:44 | PN- Housestaff ---
See Addendum Subjective Follow-up For: CVA Elevated troponins Complaints: no complaints Subjective: Patient seen and examined at bedside, sitting up eating breakfast. Patient in good sprits, did have questions regarding her diagnosis. Otherwise no complaints. Denies any pain. Denies fever/chills/night sweats/chest pain/ abdominal pain/urinary symptoms. Review of Systems Constitutional: Reports: see HPI. Objective Last 24 Hrs of Vital Signs/I&O Vital Signs Date Time Temp Pulse Resp B/P B/P Pulse O2 O2 Flow FiO2 Mean Ox Delivery Rate 05/07 0818 66 157/74 05/07 0650 96.7 66 20 157/74 94 Room Air 05/06 2222 99.0 55 20 124/80 93 Room Air 05/06 1600 Room Air 05/06 1422 98.8 49 20 136/68 96 Room Air Intake & Output 05/07 1600 05/07 0800 05/07 0000 Intake Total 35.1 133 Output Total 200 Balance 35.1 -67 Intake, IV 35.1 133 Output, Urine 200 Patient 201 lb Weight Weight Bed scale Measurement Method Physical Exam General Appearance: Alert, Oriented X3, Cooperative Skin: No Rashes, No Breakdown, No Significant Lesion Neck: Supple, No JVD, No thryomegaly Cardiovascular: Regular Rate, Normal S1, Normal S2, No Murmurs, Gallops, Rubs Lungs: Clear to Auscultation, Normal Air Movement Abdomen: Soft, No Tenderness, No Hepatospenomegaly Neurological: Normal Speech, Strength at 5/5 X4 Ext, Normal Tone, Sensation Intact Extremities: No Clubbing, No Cyanosis, No Edema Current Medications: Current Medications Sig/Suzanne Start time Last Medication Dose Route Stop Time Status Admin Aspirin 81 MG DAILY 05/05 1034 AC 05/07 PO 08 Atorvastatin Calcium 80 MG 1700 05/04 1830 AC 05/06 PO 1711 Escitalopram Oxalate 5 MG DAILY 05/05 0900 AC 05/07 PO 08 Heparin Sodium 0 .STK-MED ONE 05/06 1900 DC (Porcine) .ROUTE Heparin Sodium 6,900 UNIT ONE ONE 05/06 1900 DC 05/06 (Porcine) IV 05/06 Heparin Sodium/ 25,000 UNIT Q24H 05/05 1430 05/06 Dextrose IV 1906 Dextrose/Water 500 ML Levothyroxine Sodium 0.05 MG DAILY AC 05/05 0700 AC 05/07 PO 0636 Nebivolol 5 MG DAILY 05/05 0900 AC 05/07 PO 0818 Last 24 Hrs of Lab/Jae Results Last 24 Hrs of Labs/Mics: Laboratory Tests 05/07/18 0940: APTT Pending 05/07/18 0705: CBC w Diff NO MAN DIFF REQ, RBC 4.02 L, MCV 93.5, MCH 31.0, MCHC 33.1, RDW 14.6 H, MPV 9.7, Gran % 65.3, Lymphocytes % 23.2, Monocytes % 5.8, Eosinophils % 5.2 H, Basophils % 0.5, Absolute Granulocytes 6.6 H, Absolute Lymphocytes 2.4, Absolute Monocytes 0.6, Absolute Eosinophils 0.5, Absolute Basophils 0.1 05/07/18 0115: APTT > 120 *H 05/06/18 1545: APTT 41 H Orders Radiology Findings: SERVICE DATE: 05/06/18 EXAM TYPE: CAT - CT HEAD WO IV CONTRAST EXAMINATION: CT HEAD WITHOUT CONTRAST CLINICAL INFORMATION: Left facial droop. Assess for CVA or new bleed. COMPARISON: MRI scan of the brain 05/05/2018. TECHNIQUE: Contiguous axial imaging was performed from the skull base to vertex without intravenous administration of contrast. DLP: 616.8 mGy-cm FINDINGS: There is no evidence of acute intracranial hemorrhage or territorial infarction. No abnormal mass effect or midline shift is seen. Hewitt to white matter differentiation is well preserved. No extra-axial fluid collections are identified. The ventricles and sulci are commensurately prominent consistent with moderate diffuse volume loss. There are extensive areas of low attenuation in the periventricular and subcortical white matter consistent with chronic microvascular ischemic changes. There are areas of low attenuation in the right cerebellar hemisphere, consistent with evolving infarcts, demonstrated on prior imaging. There are atheromatous calcifications of the cavernous internal carotid arteries. There is hyperostosis frontalis interna. The soft tissues are unremarkable. The mastoid air cells and visualized portions of the paranasal sinuses are well aerated. IMPRESSION: 1. There are no acute bleeds. No masses are demonstrated. 2. There are extensive areas of low attenuation in the white matter, consistent with chronic microvascular ischemic changes. Areas of more acute infarction cannot be excluded on the basis of this study. Assessment/Plan Assessment: 82 year old female past medical history of hypertension, hypercholesterolemia, hypothyroidism, status post parathyroidectomy who presents for evaluation of left facial droop and slurred speech that began yesterday at approximately 1700. Problem list/plan: CVA/TIA -Admit to telemetry floor to rule out malignant arrhythmia as cause -I's & O's q shift, vitals per protocol -Head CT showed no acute hemorrhage -MRI brain will have higher sensitivity for ischemic stroke -neuro consult -Carotid doppler to look for atherosclerotic lesions -Patient started on aspirin 325 daily (patient is not aspirin compliant at home) -Passed bedside swallow eval. Formal consult in the am -Follow up CT head w/o contrast showed no acute bleeds, extensive areas of low attenuation in white matter. -ANIAK scheduled Tuesday (NPO Tuesday midnight) Elevated troponins -Patient found to have elevated troponins on routine ED -trend EKG and troponin; have trended down and no longer followed Hypertension -restart bystolic 5mg, Hyperlipidemia -convert home simvastatin to high dose 80 mg atorvastatin given concern for stroke -hold home amlodipine and quinapril Hypothyroid -continue home levothyroxine 50mcg/d DVT prophylaxis: ALPS Patient bedside swallow eval - Heart healthy diet Code Status: DNR/DNI Problem List: 1. CVA (cerebral vascular accident) 2. Hypertension 3. Hyperlipidemia 4. Hypothyroidism Pain Ratin Pain Location: none Pain Goal: Remain pain free Pain Plan: prn meds Tomorrow's Labs & Rationales: cbc/ptt
[2018-05-07 08:56] LABS: ABSOLUTE BASOPHIL COUNT 0.1 /CUMM (0.0-0.2); ABSOLUTE EOSINOPHIL COUNT 0.5 /CUMM (0.0-0.7); ABSOLUTE GRANULOCYTE CT 6.6 /CUMM (1.4-6.5); ABSOLUTE LYMPH COUNT 2.4 /CUMM (1.2-3.4); ABSOLUTE MONOCYTE COUNT 0.6 /CUMM (0.10-0.60); BASOPHIL % 0.5 % (0.0-2.0); EOSINOPHIL % 5.2 % (0-5); GRANULOCYTE % 65.3 % (42.2-75.2); HEMATOCRIT 37.6 % (37-47); MEAN CORPUSCULAR HGB CONC 33.1 G/DL (33.0-37.0); MEAN CORPUSCULAR VOLUME 93.5 FL (81.0-99.0); MEAN PLATELET VOLUME 9.7 FL (7.4-10.4); PLATELET COUNT 289 /CUMM (130-400); RBC DISTRIBUTION WIDTH 14.6 % (11.5-14.5); RED BLOOD CELL CT 4.02 /CUMM (4.20-5.40); WHITE BLOOD CELL COUNT 10.2 /CUMM (4.8-10.8)
[2018-05-07 11:54] LABS: PTT 62 SEC (25-37)
--- NOTE | 2018-05-07 14:37 | PN- Cardiology ---
Subjective Subjective: Feeling well. No new complaints. No chest pain. No palpitations. No diaphoresis. No nausea or vomiting. Objective Vital Signs and I&Os Vital Signs Date Time Temp Pulse Resp B/P B/P Pulse O2 O2 Flow FiO2 Mean Ox Delivery Rate 05/07 0818 66 157/74 05/07 0650 96.7 66 20 157/74 94 Room Air 05/06 2222 99.0 55 20 124/80 93 Room Air 05/06 1600 Room Air Intake & Output 05/07 1600 05/07 0800 05/07 0000 05/06 1600 05/06 0800 05/06 0000 Intake Total 35.1 133 740 371.6 120 Output Total 400 200 300 Balance -400 35.1 -67 740 71.6 120 Intake, IV 35.1 133 240 131.6 Intake, Oral 500 240 120 Number 1 Bowel Movements Output, Urine 400 200 300 Patient 201 lb 204 lb Weight Weight Bed scale Measurement Method Physical Exam: Gen: NAD HEENT: normal Lungs: clear to auscultation, normal resp. effort Heart: RRR, S1, S2, no murmurs Abdomen: Soft, nontender, no masses Extremities: No clubbing, cyanosis, or edema. Neuro: Alert and oriented x 3, left facial weakness Current Medications: Current Medications Sig/Suzanne Start time Last Medication Dose Route Stop Time Status Admin Aspirin 81 MG DAILY 05/05 1034 AC 05/07 PO 0818 Atorvastatin Calcium 80 MG 1700 05/04 1830 AC 05/06 PO 1711 Escitalopram Oxalate 5 MG DAILY 05/05 09 AC 05/07 PO 0818 Heparin Sodium 0 .STK-MED ONE 05/06 1900 NH (Porcine) .ROUTE Heparin Sodium 6,900 UNIT ONE ONE 05/06 1900 NH 05/06 (Porcine) IV 05/06 Heparin Sodium/ 25,000 UNIT Q24H 05/05 1430 05/06 Dextrose IV 1907 Dextrose/Water 500 ML Levothyroxine Sodium 0.05 MG DAILY AC 05/05 07 AC 05/07 PO 0636 Nebivolol 5 MG DAILY 05/05 09 AC 05/07 PO 0818 Results Last 48 Hrs of Labs/Mics: Laboratory Tests 05/07/18 0940: APTT 62 H 05/07/18 0705: CBC w Diff NO MAN DIFF REQ, RBC 4.02 L, MCV 93.5, MCH 31.0, MCHC 33.1, RDW 14.6 H, MPV 9.7, Gran % 65.3, Lymphocytes % 23.2, Monocytes % 5.8, Eosinophils % 5.2 H, Basophils % 0.5, Absolute Granulocytes 6.6 H, Absolute Lymphocytes 2.4, Absolute Monocytes 0.6, Absolute Eosinophils 0.5, Absolute Basophils 0.1 05/07/18 0115: APTT > 120 *H 05/06/18 1545: APTT 41 H 05/06/18 0639: APTT > 120 *H, CBC w Diff NO MAN DIFF REQ, RBC 4.29, MCV 92.0, MCH 31.4 H, MCHC 34.1, RDW 14.6 H, MPV 9.6, Gran % 65.6, Lymphocytes % 21.1, Monocytes % 6.5, Eosinophils % 6.3 H, Basophils % 0.5, Absolute Granulocytes 6.4, Absolute Lymphocytes 2.1, Absolute Monocytes 0.6, Absolute Eosinophils 0.6, Absolute Basophils 0 05/05/18 2120: APTT 110 *H Assessment/Plan Assessment/Plan 1. Acute CVA, with evidence of multiple emboli on MRI scan 2. History of hypertension 3. History of hyperlipidemia 4. Chronic right bundle branch block 5. Elevated troponin likely due to acute CVA 6. Sinus bradycardia due to beta-pat use Plan: * Continue aspirin * Continue IV heparin * ANIKA Tuesday * N.p.o. after midnight Tuesday night Continue telemetry? Yes
[2018-05-07 15:44] VITALS: BP 142/78
[2018-05-07 22:43] VITALS: BP 136/82
[2018-05-07 23:28] LABS: PTT 46 SEC (25-37)
[2018-05-08 06:41] VITALS: BP 148/82
--- NOTE | 2018-05-08 07:00 | PN- Housestaff ---
Lewis Owusu 05/08/18 0700: Subjective Follow-up For: CVA - suggestive multiple thromboembolic events elevated troponins Complaints: no complaints Subjective: Patient seen and examined at the bedside. Patient in good spirits, but disappointed that she did have to stick around and wait for the echocardiogram machine. Otherwise no complaints. Otherwise denies any pain, headache, fever, chills, blurred/double vision, lightheadedness/dizziness, current chest pain at rest, palpitations, heartburn, shortness breath, cough, vomiting, abdominal pain , or urinary symptoms. Review of Systems Constitutional: Reports: see HPI. Objective Last 24 Hrs of Vital Signs/I&O Vital Signs Date Time Temp Pulse Resp B/P B/P Pulse O2 O2 Flow FiO2 Mean Ox Delivery Rate 05/08 1019 51 18 148/82 05/08 0641 97.8 51 18 148/82 95 Room Air 05/08 0000 Room Air 05/07 2243 97.7 56 18 136/82 97 Room Air 05/07 1544 97.6 53 18 142/78 95 Room Air Intake & Output 05/08 1600 05/08 0800 05/08 0000 Intake Total 100 11.7 Output Total Balance 100 11.7 Intake, IV 100 11.7 Patient 189 lb Weight Weight Bed scale Measurement Method Physical Exam General Appearance: Alert, Oriented X3, Cooperative, No Acute Distress Skin: No Rashes, No Breakdown, No Significant Lesion Skin Temp/Moisture Exam: Warm/Dry HEENT: Atraumatic, Mucous Membr. moist/pink Cardiovascular: Regular Rate, Normal S1, Normal S2, No Murmurs, Gallops, Rubs Lungs: Clear to Auscultation, Normal Air Movement Abdomen: Soft, No Tenderness Extremities: No Clubbing, No Cyanosis, No Edema Current Medications: Current Medications Sig/Suzanne Start time Last Medication Dose Route Stop Time Status Admin Aspirin 81 MG DAILY 05/05 1034 AC 05/08 PO 1018 Atorvastatin Calcium 80 MG 1700 05/04 1830 AC 05/07 PO 1722 Escitalopram Oxalate 5 MG DAILY 05/05 0900 AC 05/08 PO 1017 Heparin Sodium 3,428 UNIT ONCE ONE 05/08 0130 DC 05/08 (Porcine) IV 05/08 0131 0142 Heparin Sodium/ 25,000 UNIT Q24H 05/05 1430 AC 05/08 Dextrose IV 0445 Dextrose/Water 500 ML Levothyroxine Sodium 0.05 MG DAILY AC 05/05 0700 AC 05/08 PO 0525 Nebivolol 5 MG DAILY 05/05 0900 DC 05/08 PO 1019 Senna/Docusate Sodium 1 TAB BID 05/08 09 AC 05/08 PO 1018 Last 24 Hrs of Lab/Jae Results Last 24 Hrs of Labs/Mics: Laboratory Tests 05/08/18 0636: APTT > 120 *H, CBC w Diff NO MAN DIFF REQ, RBC 4.12 L, MCV 92.7, MCH 31.1 H, MCHC 33.5, RDW 14.6 H, MPV 9.6, Gran % 66.9, Lymphocytes % 21.5, Monocytes % 6.0, Eosinophils % 5.1 H, Basophils % 0.5, Absolute Granulocytes 6.9 H, Absolute Lymphocytes 2.2, Absolute Monocytes 0.6, Absolute Eosinophils 0.5, Absolute Basophils 0 05/07/18 2145: APTT 46 H Assessment/Plan Assessment: 82 year old female past medical history of hypertension, hypercholesterolemia, hypothyroidism, status post parathyroidectomy who presents for evaluation of left facial droop and slurred speech. Problem list/plan: CVA/TIA -Admit to telemetry floor to rule out malignant arrhythmia as cause -I's & O's q shift, vitals per protocol -Head CT showed no acute hemorrhage -MRI brain showed multiple areas of acute infarction -neuro consult -Carotid doppler to look for atherosclerotic lesions -Patient started on aspirin 325 daily (patient is not aspirin compliant at home) -Passed bedside swallow eval. Formal consult in the am -Follow up CT head w/o contrast showed no acute bleeds, extensive areas of low attenuation in white matter. -ANIKA scheduled Tuesday was not done; may be attempted after echo machine is repaired -Patient's IV heparin converted to 5mg Eliquis BID Elevated troponins -Patient found to have elevated troponins on routine ED -trend EKG and troponin; have trended down and no longer followed Hypertension/bradycardia -stopped home bystolic, due to bradycardia -continue to follow cardiology recommendations Hyperlipidemia -convert home simvastatin to high dose 80 mg atorvastatin given concern for stroke -hold home amlodipine and quinapril Hypothyroid -continue home levothyroxine 50mcg/d DVT prophylaxis: ALPS Patient bedside swallow eval - Heart healthy diet Code Status: DNR/DNI Problem List: 1. CVA (cerebral vascular accident) 2. Hypertension 3. Hyperlipidemia 4. Hypothyroidism Pain Ratin Pain Location: none Pain Goal: Remain pain free Pain Plan: none Tomorrow's Labs & Rationales: cbc for prior hep therapy bep for creatinine clearance Joselyn Berrios MD 05/08/18 1050: Attending MD Review Statement Attending Statement Attending MD Statement: examined this patient, discuss w/resident/PA/SUPERVISOR SCOURING PADS, agreed w/resident/PA/SUPERVISOR SCOURING PADS, reviewed EMR data (avail), discussed with nursing, discussed with case mgmt, reviewed images Attending Assessment/Plan: 82-year-old female past medical history of hypothyroidism and hypertension on nebivolol who came in with facial droop and slurred speech. Initial CT head was negative but MRI showed multiple infarcts suggestive of embolic in nature. She was started on IV heparin with the plan for ANIKA today. The echo machine is broken and the ANIKA will have to be postponed. She is profoundly bradycardic going in the 40s-50s so we will stop the nebivolol and follow closely.
[2018-05-08 08:08] LABS: ABSOLUTE BASOPHIL COUNT 0 /CUMM (0.0-0.2); ABSOLUTE EOSINOPHIL COUNT 0.5 /CUMM (0.0-0.7); ABSOLUTE GRANULOCYTE CT 6.9 /CUMM (1.4-6.5); ABSOLUTE LYMPH COUNT 2.2 /CUMM (1.2-3.4); ABSOLUTE MONOCYTE COUNT 0.6 /CUMM (0.10-0.60); BASOPHIL % 0.5 % (0.0-2.0); EOSINOPHIL % 5.1 % (0-5); GRANULOCYTE % 66.9 % (42.2-75.2); HEMATOCRIT 38.2 % (37-47); MEAN CORPUSCULAR HGB 31.1 PG (27.0-31.0); MEAN CORPUSCULAR HGB CONC 33.5 G/DL (33.0-37.0); MEAN CORPUSCULAR VOLUME 92.7 FL (81.0-99.0); MEAN PLATELET VOLUME 9.6 FL (7.4-10.4); PLATELET COUNT 283 /CUMM (130-400); RBC DISTRIBUTION WIDTH 14.6 % (11.5-14.5); RED BLOOD CELL CT 4.12 /CUMM (4.20-5.40); WHITE BLOOD CELL COUNT 10.3 /CUMM (4.8-10.8)
[2018-05-08 08:44] LABS: PTT > 120 SEC (25-37)
--- NOTE | 2018-05-08 10:56 | PN- Cardiology ---
Subjective Subjective: The patient is awake, alert Telemetry demonstrates predominantly bradycardia with heart rates ranging between 40s and 50s. The patient is asymptomatic for the same. The patient is otherwise ambulating with physical therapy without difficulty. The events of the last 24 hours as well as telemetry were reviewed. Review of Systems: The review of systems is negative for chest pains, palpitations nor lightheadedness. The remainder of the 14 point review of systems is noncontributory with the exception of above. Objective Vital Signs and I&Os Vital Signs Date Time Temp Pulse Resp B/P B/P Pulse O2 O2 Flow FiO2 Mean Ox Delivery Rate 05/08 1019 51 18 148/82 05/08 0641 97.8 51 18 148/82 95 Room Air 05/08 0000 Room Air 05/07 2243 97.7 56 18 136/82 97 Room Air 05/07 1544 97.6 53 18 142/78 95 Room Air Intake & Output 05/08 1600 05/08 0800 05/08 0000 05/07 1600 05/07 0800 05/07 0000 Intake Total 100 11.7 550 35.1 133 Output Total 400 200 Balance 100 11.7 150 35.1 -67 Intake, IV 100 11.7 100 35.1 133 Intake, Oral 450 Output, Urine 400 200 Patient 189 lb 201 lb Weight Weight Bed scale Bed scale Measurement Method Physical Exam: General: Nontoxic, no apparent distress. HEENT: Sclera and conjunctiva within normal limits, without xanthelasmas. Neck: Carotids 2+ without bruits. Respiratory: Clear to auscultation, air movement is good, without accessory respiratory muscle use. Heart: Regular rate and rhythm, without murmurs, without JVD. Abdomen: Soft, nontender, no masses, normoactive bowel sounds. Extremities: Without clubbing, cyanosis, without edema. Neuro: Nonfocal exam, strength, 5 out of 5 Skin: Within normal limits without lesions. Psych: Mood and affect: Normal Current Medications: Current Medications Sig/Suzanne Start time Last Medication Dose Route Stop Time Status Admin Aspirin 81 MG DAILY 05/05 1034 AC 05/08 PO 1018 Atorvastatin Calcium 80 MG 1700 05/04 1830 AC 05/07 PO 1722 Escitalopram Oxalate 5 MG DAILY 05/05 0900 AC 05/08 PO 1017 Heparin Sodium 3,428 UNIT ONCE ONE 05/08 0130 DC 05/08 (Porcine) IV 05/08 0131 0142 Heparin Sodium/ 25,000 UNIT Q24H 05/05 1430 AC 05/08 Dextrose IV 0445 Dextrose/Water 500 ML Levothyroxine Sodium 0.05 MG DAILY AC 05/05 0700 AC 05/08 PO 0525 Nebivolol 5 MG DAILY 05/05 900 DC 05/08 PO 1019 Senna/Docusate Sodium 1 TAB BID 05/08 09 AC 05/08 PO 1018 Results Last 48 Hrs of Labs/Mics: Laboratory Tests 05/08/18 0636: APTT > 120 *H, CBC w Diff NO MAN DIFF REQ, RBC 4.12 L, MCV 92.7, MCH 31.1 H, MCHC 33.5, RDW 14.6 H, MPV 9.6, Gran % 66.9, Lymphocytes % 21.5, Monocytes % 6.0, Eosinophils % 5.1 H, Basophils % 0.5, Absolute Granulocytes 6.9 H, Absolute Lymphocytes 2.2, Absolute Monocytes 0.6, Absolute Eosinophils 0.5, Absolute Basophils 0 05/07/18 2145: APTT 46 H 05/07/18 0940: APTT 62 H 05/07/18 0705: CBC w Diff NO MAN DIFF REQ, RBC 4.02 L, MCV 93.5, MCH 31.0, MCHC 33.1, RDW 14.6 H, MPV 9.7, Gran % 65.3, Lymphocytes % 23.2, Monocytes % 5.8, Eosinophils % 5.2 H, Basophils % 0.5, Absolute Granulocytes 6.6 H, Absolute Lymphocytes 2.4, Absolute Monocytes 0.6, Absolute Eosinophils 0.5, Absolute Basophils 0.1 05/07/18 0600: APTT Cancelled 05/07/18 0115: APTT > 120 *H 05/06/18 1545: APTT 41 H Assessment/Plan Assessment/Plan 1. Acute CVA, with evidence of multiple emboli on MRI scan 2. History of hypertension 3. History of hyperlipidemia 4. Chronic right bundle branch block 5. Elevated troponin likely due to acute CVA 6. Sinus bradycardia due to beta-pat use Acute CVA: A transesophageal echocardiogram is planned when available. We will proceed with the same. The patient later full anticoagulation, given the likely embolic nature of the findings. Bradycardia: Nebivolol will be discontinued. As she is asymptomatic, we will continue with monitoring only at this time. Continue telemetry? Yes
[2018-05-08 13:51] VITALS: BP 160/90
[2018-05-08 22:57] VITALS: BP 128/76
[2018-05-09 06:23] VITALS: BP 136/90
--- NOTE | 2018-05-09 07:00 | PN- Housestaff ---
Lewis Owusu 05/09/18 0700: Subjective Follow-up For: cva - mri suggests multiple thromboembolic events elevated troponins bradycardia Complaints: no complaints Tele-Events Since Last Visit: sinus yovani Subjective: Patient seen and examined at bedside. Patient concerned about the Linq monitor placement today, but otherwise no complaints. Excited to be going home after theplacement. Otherwise denies any pain, headache, fever, chills, blurred/double vision, lightheadedness/dizziness, current chest pain at rest, palpitations, heartburn, shortness breath, cough, vomiting, abdominal pain, or urinary symptoms. Review of Systems Constitutional: Reports: see HPI. Objective Last 24 Hrs of Vital Signs/I&O Vital Signs Date Time Temp Pulse Resp B/P B/P Pulse O2 O2 Flow FiO2 Mean Ox Delivery Rate 05/09 0623 97.7 56 16 136/90 94 Room Air 05/08 2257 98.1 56 18 128/76 93 Room Air 05/08 1351 97.8 50 20 160/90 94 Room Air 05/08 1019 51 18 148/82 Intake & Output 05/09 1600 05/09 0800 05/09 0000 Intake Total Output Total Balance Patient 186 lb Weight Weight Bed scale Measurement Method Physical Exam General Appearance: Alert, Oriented X3, Cooperative, No Acute Distress Skin: No Rashes, No Breakdown, No Significant Lesion Skin Temp/Moisture Exam: Warm/Dry Cardiovascular: Regular Rate, Normal S1, Normal S2, No Murmurs, Gallops, Rubs Lungs: Clear to Auscultation, Normal Air Movement Abdomen: Soft, No Tenderness Neurological: Normal Speech, Strength at 5/5 X4 Ext, Normal Tone, Sensation Intact Current Medications: Current Medications Sig/Suzanne Start time Last Medication Dose Route Stop Time Status Admin Apixaban 5 MG BID 05/08 1415 AC 05/08 PO 2047 Aspirin 81 MG DAILY 05/05 1034 AC 05/08 PO 1018 Atorvastatin Calcium 80 MG 1700 05/04 1830 AC 05/08 PO 1701 Escitalopram Oxalate 5 MG DAILY 05/05 09 AC 05/09 PO 0825 Heparin Sodium/ 25,000 UNIT Q24H 05/05 1430 DC 05/08 Dextrose IV 0445 Dextrose/Water 500 ML Levothyroxine Sodium 0.05 MG DAILY AC 05/05 07 AC 05/08 PO 0525 Nebivolol 5 MG DAILY 05/05 900 DC 05/08 PO 1019 Ondansetron HCl 0 .STK-MED ONE 05/09 918 DC PO Senna/Docusate Sodium 1 TAB BID 05/08 09 AC 05/09 PO 0824 Last 24 Hrs of Lab/Jae Results Last 24 Hrs of Labs/Mics: Laboratory Tests 05/09/18 0622: APTT 43 H, CBC w Diff NO MAN DIFF REQ, RBC 4.50, MCV 92.4, MCH 30.8, MCHC 33.3, RDW 15.1 H, MPV 10.0, Gran % 70.2, Lymphocytes % 17.2 L, Monocytes % 7.8, Eosinophils % 4.3, Basophils % 0.5, Absolute Granulocytes 7.1 H, Absolute Lymphocytes 1.7, Absolute Monocytes 0.8 H, Absolute Eosinophils 0.4, Absolute Basophils 0.1 05/08/18 1600: APTT Cancelled Assessment/Plan Assessment: 82 year old female past medical history of hypertension, hypercholesterolemia, hypothyroidism, status post parathyroidectomy who presents for evaluation of left facial droop and slurred speech. Problem list/plan: CVA/TIA -Admit to telemetry floor to rule out malignant arrhythmia as cause -I's & O's q shift, vitals per protocol -Head CT showed no acute hemorrhage -MRI brain showed multiple areas of acute infarction -neuro consult -Carotid doppler to look for atherosclerotic lesions -Patient started on aspirin 81mg daily (patient is not aspirin compliant at home ) -Passed bedside swallow eval. Formal consult in the am -Follow up CT head w/o contrast showed no acute bleeds, extensive areas of low attenuation in white matter. -ANIKA scheduled Tuesday was not done; patient is receiving Linq monitor today and plan for discharge -Patient's IV heparin converted to 5mg Eliquis BID -pharmacy called to educate patient about eliquis Elevated troponins -Patient found to have elevated troponins on routine ED -trend EKG and troponin; have trended down and no longer followed Hypertension/bradycardia -stopped home bystolic, due to bradycardia -continue to follow cardiology recommendations regarding new medication Hyperlipidemia -convert home simvastatin to high dose 80 mg atorvastatin given concern for stroke -hold home amlodipine and quinapril Hypothyroid -continue home levothyroxine 50mcg/d DVT prophylaxis: ALPS Patient bedside swallow eval - Heart healthy diet Code Status: DNR/DNI Problem List: 1. CVA (cerebral vascular accident) 2. Hypertension 3. Hyperlipidemia 4. Hypothyroidism 5. Bradycardia Pain Ratin Pain Location: none Pain Goal: Remain pain free Pain Plan: none Tomorrow's Labs & Rationales: none; discharge planned Joselyn Berrios MD 05/09/18 0958: Attending MD Review Statement Attending Statement Attending MD Statement: examined this patient, discuss w/resident/PA/INTERNAL AUDIT CONSULTANT, agreed w/resident/PA/INTERNAL AUDIT CONSULTANT, reviewed EMR data (avail), discussed with nursing, discussed with case mgmt, reviewed images Attending Assessment/Plan: Patient is due to have the link device put in today. She is an 82-year-old with a past medical history of hypertension who is here with what appears to be multiple embolic CVA. We have her on Eliquis. She was bradycardic and we are watching her heart rate off the Bystolic. Her blood pressure is creeping up and will likely need to start some form of antihypertensive.
[2018-05-09 07:48] LABS: ABSOLUTE BASOPHIL COUNT 0.1 /CUMM (0.0-0.2); ABSOLUTE EOSINOPHIL COUNT 0.4 /CUMM (0.0-0.7); ABSOLUTE GRANULOCYTE CT 7.1 /CUMM (1.4-6.5); ABSOLUTE LYMPH COUNT 1.7 /CUMM (1.2-3.4); ABSOLUTE MONOCYTE COUNT 0.8 /CUMM (0.10-0.60); BASOPHIL % 0.5 % (0.0-2.0); EOSINOPHIL % 4.3 % (0-5); GRANULOCYTE % 70.2 % (42.2-75.2); HEMATOCRIT 41.6 % (37-47); MEAN CORPUSCULAR HGB 30.8 PG (27.0-31.0); MEAN CORPUSCULAR HGB CONC 33.3 G/DL (33.0-37.0); MEAN CORPUSCULAR VOLUME 92.4 FL (81.0-99.0); PLATELET COUNT 304 /CUMM (130-400); RBC DISTRIBUTION WIDTH 15.1 % (11.5-14.5); WHITE BLOOD CELL COUNT 10.1 /CUMM (4.8-10.8)
[2018-05-09 08:16] LABS: PTT 43 SEC (25-37)
--- NOTE | 2018-05-09 08:58 | Patient Discharge Instructions ---
Discharge Instructions General Discharge Information Special Instructions: - Please follow up with your primary care physician within 1-2 weeks of discharge. Inform your primary care physician of this admission to [facility]. - Please follow up with your college dean Dr. Berrios to scheduleoutpatient ANIKA - Continue your current medications per discharge instructions. - Please watch for these problems: Fever, Chills, Nausea, Vomiting, Shortness of Breath, Productive Cough, Chest Pain/Discomfort, Abdominal Pain, Active Bleeding or Bloody urine/stool. Acute Coronary Syndrome Inclusion Criteria At DC or during hospital stay patient has or had the following: ACS DIAGNOSIS No Discharge Core Measures Meds if any: Prescribed or Continued at Discharge Meds if any: NOT Prescribed or Continued at Discharge Congestive Heart Failure Inclusion Criteria At DC or during hospital stay patient has or had the following: CHF DIAGNOSIS No Discharge Core Measures Meds if any: Prescribed or Continued at Discharge Meds if any: NOT Prescribed or Continued at Discharge Cerebrovascular accident Inclusion Criteria At DC or during hospital stay patient has or had the following: CVA/TIA Diagnosis Yes Discharge Core Measures Meds if any: Prescribed or Continued at Discharge Statin (required if LDL =>70) Yes Anticoagulant Yes Meds if any: NOT Prescribed or Continued at Discharge Venous thromboembolism Inclusion Criteria VTE Diagnosis No VTE Type NONE VTE Confirmed by (Test) NONE Discharge Core Measures - Per Current guidelines, there needs to be overlap - treatment for the first 5 days of Warfarin therapy. - If discharged on Warfarin prior to 5 days of - overlap therapy, the patient will need to be - assessed for post discharge needs including - *Post discharge parental anticoagulation - *Warfarin and/or parental anticoagulation education - *Follow up date to check INR post discharge At least 5 days overlap therapy as Inpatient No Meds if any: Prescribed or Continued at Discharge Note: Overlap Therapy is Warfarin and Anticoagulant Meds if any: NOT Prescribed or Continued at Discharge
--- NOTE | 2018-05-09 12:10 | Proc Note Cardiology ---
Cardiology Procedure Procedure Date: 05/09/18 Cardiology Procedure(s): Implantable Loop Recoder Pre-Operative Diagnosis: cva Post-Operative Diagnosis: cva Estimated Blood Loss: none Anesthesia: local only Procedure Findings: Under usual sterile conditions in the [facility] invasive procedures room, the patient was prepped and draped. The left pectoral area in the region of device placement was anesthetized using subcutaneous lidocaine infiltration. Following a small prick incision, an incision was made with the Reveal LINQ blade. The device was then inserted using the provided insertion tool without difficulty. Device telemetry was then confirmed prior to closure. Closure was performed using 3-0 proline x1 stich Device model: [id number] Reveal LINQ, model number [id number] Serial number: [id number] The patient was observed prior to discharge.
--- NOTE | 2018-05-09 13:28 | Discharge Summary ---
Visit Information Visit Dates Admission Date: 05/04/18 Discharge Date: 05/09/18 Hospital Course Course Attending Physician: Agustina GARNER,Joselyn Pagan Primary Care Physician: Deepika GARNER,Ifeanyi Pagan Consulting Request: 1 Consulting Specialty: Neurology Consulting Physician: Jose Sommer Reason for Consult: CVA Consulting Request: 2 Consulting Specialty: Cardiology Consulting Physician: Den Anglin, Sergey Morton, Nikos Cleaning Reason for Consult: Concern for arrhythmia; Bradycardia Hospital Course: 82 year old female past medical history of hypertension, hypercholesterolemia, hypothyroidism, status post parathyroidectomy who presents for evaluation of left facial droop and slurred speech of approximately 16 hours. he dysarthria and weakness resolved however left facial droop was still persistent. When seen by the medical team other than the left facial droop, her entire neurological exam was benign. Patient reports the previous day she was seen by grease buffer who gave her some homeopathic medications which includes bovine adrenal and liver extract, porcine stomach extract as some of the ingredients. She was admitted to the telemetry service and treated for the following concerns. Cerebrovascular accident Admitted to telemetry to rule out malignant arrhythmia as a cause. Head CT did not show any acute infarction, but MRI brain demonstrated several areas of infarction suggestive of thromboembolic stroke. Carotid Doppler showed no atherosclerotic lesions. Follow-up CT head demonstrated no conversion to hemorrhagic stroke, but did show extensive areas of loss of white matter. Patient was set to undergo ANIKA, but this was not done due to the echocardiogram machine needing repairs. Instead, the patient was given a Linq monitor and will follow up with a ANIKA as an outpatient. While in the hospital, patient was treated with IV. For discharge patient was converted to 5 mg Eliquis twice daily, and pharmacy was called to educate patient about Eliquis. Elevated troponins Patient was found to have elevated troponins on routine ED testing. The patient 's EKG and troponin were trended, which trended down and were likely due to demand ischemia, though overt ACS could not be ruled out. Hypertension/bradycardia The patient came in on Bystolic, which was stopped due to bradycardia down to high 30s during hospitalization. Blood pressure has been trending up during admission. Cardiology recommends returning to home quniapril for control of blood pressure at home. Hyperlipidemia Patient's home simvastatin was converted to high dose 80 mg atorvastatin given the concern for stroke. Patient will be discharged on home amlodipine and quinapril dose, which were held while in the hospital. Hypothyroidism Patient was continued on her home levothyroxine 50 MCG per day. Allergies: Coded Allergies: shrimp (UNKNOWN 12/31/16) strawberry (UNKNOWN 12/31/16) Significant Procedures: SERVICE DATE: 05/04/18-1116 EXAM TYPE: CAT - CT HEAD WO IV CONTRAST IMPRESSION: No definite acute intracranial findings. 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 If focal neurologic deficit persists, MRI would be more sensitive in evaluation. ERVICE DATE: 05/04/18-161 EXAM TYPE: CARD - ECHOCARDIOGRAM FINDINGS Left Ventricle Normal size left ventricle. Left ventricular wall thickness mildly increased. Normal left ventricular ejection fraction estimated at 60-65%. Right Ventricle Normal right ventricular size and function. Right Atrium Normal right atrial size. Left Atrium Mild left atrial dilatation. Mitral Valve Moderate mitral annular calcification. Mild mitral regurgitation. Aortic Valve Thickened aortic valve without stenosis. Tricuspid Valve Tricuspid valve is normal in structure and function. Mild tricuspid regurgitation. Pulmonic Valve Pulmonic valve not well visualized, grossly normal. Pericardium No pericardial effusion. Great Vessels Normal size aortic root. CONCLUSIONS Normal left ventricular systolic function with mild LVH. Dilated left atrium. No significant valvular abnormalities noted. Oleg Berrios M.D. (Electronically Signed) Final Date: 05 May 2018 07:50 MEASUREMENTS (Male / Female) Normal Values 2D ECHO LV Diastolic Diameter PLAX 4.2 cm 4.2 - 5.9 / 3.9 - 5.3 cm LV Systolic Diameter PLAX 2.7 cm 2.1 - 4.0 cm LV Fractional Shortening PLAX 35.7 % 25 - 46 % LV Ejection Fraction 2D Teich 65.6 % IVS Diastolic Thickness 1.3 cm LVPW Diastolic Thickness 1.3 cm LV Relative Wall Thickness 0.6 RV Internal Dim ED PLAX 3.1 cm 1.9 - 3.8 cm LVOT Diameter 2.2 cm Aortic Root Diameter 3.0 cm LA Systolic Diameter LX 4.0 cm 3.0 - 4.0 / 2.7 - 3.8 cm LA Volume 97.0 cm 18 - 58 / 22 - 52 cm Ascending Aorta Diameter 3.3 cm DOPPLER AV Peak Velocity 132.0 cm/s AV Peak Gradient 7.0 mmHg AV Mean Velocity 92.8 cm/s AV Mean Gradient 4.0 mmHg AV Velocity Time Integral 30.0 cm LVOT Peak Velocity 106.0 cm/s LVOT Peak Gradient 4.5 mmHg LVOT Mean Velocity 69.8 cm/s LVOT Mean Gradient 2.0 mmHg LVOT Velocity Time Integral 26.7 cm LVOT Stroke Volume 101.5 cm AV Area Cont Eq vti 3.4 cm AV Area Cont Eq pk 3.1 cm MV Peak Velocity 119.0 cm/s MV Peak Gradient 5.7 mmHg MV Mean Velocity 73.1 cm/s MV Mean Gradient 2.0 mmHg Mitral E Point Velocity 98.7 cm/s Mitral A Point Velocity 93.3 cm/s Mitral E to A Ratio 1.1 MV PHT Velocity 97.2 cm/s MV Deceleration [place] 450.0 cm/s MV Pressure Half Time 64.8 ms MV Area PHT 3.4 cm MV Deceleration Time 440.0 ms TV Peak Velocity 277.0 cm/s TV Peak E Velocity 43.4 cm/s TV Peak A Velocity 33.1 cm/s TV E to A Ratio 1.3 Right Atrial Pressure 5.0 mmHg PV Peak Velocity 82.0 cm/s PV Peak Gradient 2.7 mmHg PV Mean Velocity 61.4 cm/s PV Mean Gradient 2.0 mmHg PV Velocity Time Integral 21.8 cm LV E' Lateral Velocity 6.6 cm/s Mitral E to LV E' Lateral Ratio 14.9 LV E' Septal Velocity 6.7 cm/s Mitral E to LV E' Septal Ratio 14.7 SERVICE DATE: 05/04/18-172 EXAM TYPE: US - [id number] DOPPLER No hemodynamically significant stenosis in either carotid artery. Normal antegrade flow seen in both vertebral arteries. SERVICE DATE: 05/05/18- EXAM TYPE: MRI - MRI-HEAD W/O NELSON Numerous subcentimeter acute/subacute cerebral and cerebellar infarctions as detailed above. There is extensive microvascular ischemic disease. There is mild cerebral atrophy. SERVICE DATE: 05/06/18-1000 EXAM TYPE: CAT - CT HEAD WO IV CONTRAST 1. There are no acute bleeds. No masses are demonstrated. 2. There are extensive areas of low attenuation in the white matter, consistent with chronic microvascular ischemic changes. Areas of more acute infarction cannot be excluded on the basis of this study. 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 Inform your primary care physician of this admission to [facility]. - Please follow up with your digital account director Dr. Berrios to scheduleoutpatient ANIKA - Continue your current medications per discharge instructions. - Please watch for these problems: Fever, Chills, Nausea, Vomiting, Shortness of Breath, Productive Cough, Chest Pain/Discomfort, Abdominal Pain, Active Bleeding or Bloody urine/stool. Medications at Discharge Discharge Medications: Stop taking the following medications: Nebivolol HCl (Bystolic) 5 MG TABLET ORAL DAILY Continue taking these medications: Amlodipine Besylate (Amlodipine Besylate) 5 MG TABLET 1 Tablet ORAL DAILY Quinapril HCl (Accupril) 40 MG TABLET 1 Tablet ORAL DAILY Levothyroxine Sodium (Levoxyl) 50 MCG TABLET 1 Tablet ORAL DAILY BEFORE BREAKFAST Comments: Last Taken:05/09/18 Time:0700 Simvastatin (Zocor*) 20 MG TABLET 1 Tablet ORAL Every night Comments: Last Taken:05/08/18 Time:5PM Multivitamin (Daily Multiple Vitamin) 1 EACH TABLET 1 Tablet ORAL DAILY Antiox#10/Om3/Dha/Epa/Lut/Zeax (I-Caps With Lutein-[place] 3 Sfg) 280 MG (78 MG- 148 MG)-10 MG-2 MG CAPSULE 1 Capsule ORAL DAILY Olopatadine HCl (Patanol) 0.1 % DROPS 1 Drop In the eye TWICE DAILY Aspirin (Aspirin*) 81 MG TAB.CHEW 1 Tablet ORAL DAILY Comments: Last Taken:05/09/18 Time:0800 Escitalopram Oxalate (Lexapro) 5 MG TABLET 1 Tablet ORAL DAILY Comments: Last Taken:05/09/18 Time:0800 Sodium Chloride (Rhinaris) 0.2 % SPRAY 1 [place] In the nose DAILY Cholecalciferol (Vitamin D3) (Vitamin D3) 2,000 UNIT TABLET 1 Tablet ORAL DAILY Start taking the following new medications: Apixaban (Eliquis) 5 MG TABLET 5 Milligram ORAL TWICE DAILY Qty = 60 No Refills Instructions: . Comments: Last Taken:05/09/18 Time:0800 Copies To: Deepika GARNER,Ifeanyi Pagan; Varun GARNER,Sergey
[2018-05-09 14:34] VITALS: BP 138/74
[2018-05-09] MEDS ORDERED: ELIQUIS5 M1 PO (14:57)
[2018-05-10] MEDS ORDERED: ELIQUIS5 M1 PO (13:13)
== END 2018-05-09 16:25 | DRG 42 ==
LOC: ERH 10:47 → ERHI 15:39 → 1NO 15:39 → EDBEDREQ 16:56 → EDBEDREQTM 16:56 → CANRESERV 17:50 → ENRESERV 17:50 → ENTRNSPT 18:50 → EDTRNSPTSTS 19:12 → EDTRNSPT 19:34 → ENRESERV 20:34 → EDTRNSPT 20:44 → CMPTRNSPT 21:32 → ENTRNSPT 21:32 → EDTRNSPTSTS 21:53 → 1NO 22:12 → CMPTRNSPT 22:38 → 1NO 05-07 12:48 → ENTRNSPT 05-09 16:07 → CMPTRNSPT 05-09 16:13 → 1NO 05-09 16:25
PROVIDERS: Emergency Medicine; General Practice; Internal Medicine; Student in an Organized Health Care Education/Training Program
PROC: 0JH632Z Insertion of Monitoring Device into Chest Subcutaneous Tissue and Fascia, Percutaneous Approach (ICD-10-PCS; principal; 2018-05-09)
DX: I63.9 Cerebral infarction, unspecified (principal); R29.810 Facial weakness; I10 Essential (primary) hypertension; E78.00 Pure hypercholesterolemia, unspecified; W19.XXXA Unspecified fall, initial encounter; M25.512 Pain in left shoulder; I45.10 Unspecified right bundle-branch block; R00.1 Bradycardia, unspecified; T44.7X5A Adverse effect of beta-adrenoreceptor antagonists, initial encounter; R79.89 Other specified abnormal findings of blood chemistry; E89.0 Postprocedural hypothyroidism; Z66 Do not resuscitate; Z90.49 Acquired absence of other specified parts of digestive tract
CPT/HCPCS: 1NSP; 70551; 86618; 87476; 36415; 36592; 82436; 93005; 93010; 93306; 97110-GO; 97116-GO; 97161-GP; 99291; C1764; J1644; J2001; J3101; J3490; J7060